=== PATIENT | female | born 1940 | race Caucasian/White ===

== ENCOUNTER 2016-10-25 18:34 | Emergency (ER) | payer MEDICARE, OTHER ==
[~2016-10-25] VITALS: Ht 172.7 cm; Wt 86.4 kg
[~2016-10-25 18:34] MED LIST: AMIO200T PO; AMT50T PO; ASPI-973 PO; CARV25TA2 PO; CHOL40003 PO; GEMF600T3 PO; HYDR-3740 PO; ISOS30TA4 PO; KRIL1CAP19 PO; LIP40 PO; LISI-567 PO; LORA0.5T PO; LOV100 SUBQ; MULT-1018 PO; NITR0.4T SL; OMEP20TA86 PO; POLY17PO6 PO; RNT300T PO; SERT100T9 PO; TRIA1CAP5 PO; WARF3TAB7 PO; [UNRECOGNIZED DRUG - CODE] PO
[2016-10-25 18:44] VITALS: BP 113/65; PULSE 71; RESP 16; O2SAT 95
== END 2016-10-25 20:49 | disposition left against medical advice (07) ==
LOC: SED 18:34
DX: Z53.21 Procedure and treatment not carried out due to patient leaving prior to being seen by health care provider (principal)

== ENCOUNTER 2017-02-07 20:53 | Inpatient (IN) | payer MEDICARE, OTHER ==
[~2017-02-07] VITALS: Ht 172.7 cm; Wt 100.3 kg
[2017-02-07 21:00] VITALS: BP 142/108; PULSE 129; RESP 24; O2SAT 86
--- NOTE | 2017-02-07 21:10 | ED.REPORT ---
HPI-Dyspnea / Wheezing Date of Service Feb 07, 2017 ED Provider: Juan Manuel Rose MD 76 y/o female on Warfarin with a hx of CHF, CAD (s/p stent placement), hypertension, COPD and atrial fibrillation with RVR presents to the ED via EMS complaining of dyspnea for the past 2 weeks. As per the EMS, the pt had shallow respirations and wheezing. She was given Albuterol and 20mg Cardizem, which seemed to improve her sx and brought her HR down from 180 to 110. The pt states her sx got significantly worse 5 days ago when she experienced a severe and sudden attack of shortness of breath. The last two nights were especially unbearable. She used her Nebulizer but it did not improved her condition at all. She also reports mild nausea and chest pain. She states "it feels like a lump in my chest". The pt denies fever and cough. She has not taken any of her medications today, including Carvedilol. Code status: DNR with short term ventilatory support. PCP: Dr. Yoon Meat Boner And Slicer: Dr. Yao Nursing Notes Stated Complaint: SHORTNESS OF BREATH Chief Complaint: Respiratory Complaints Nursing Notes Reviewed: Yes Allergies: Uncoded Allergies: weed/grasses (Allergy, Severe, sneezing, nasal drainage, coughing, 02/04/11) Scheduled Amitriptyline (Amitriptyline) 50 Mg Tab 50 MG PO HS Aspirin (Aspirin) 81 Mg Tablet 81 MG PO HS Atorvastatin (Lipitor) 40 Mg Tablet 40 MG PO HS Carvedilol (Carvedilol) 25 Mg Tablet 25 MG PO BID Cholecalciferol (Vitamin D3) (Vitamin D3) 2,000 Unit Capsule 2,000 UNIT PO DAILY Flecainide Acetate (Flecainide Acetate) 50 Mg Tablet 50 MG PO BID Gemfibrozil (Gemfibrozil) 600 Mg Tablet 600 MG PO BID Isosorbide MN ER (Isosorbide MN ER) 30 Mg Tab.er.24h 30 MG PO DAILY Lisinopril (Lisinopril) 20 Mg Tablet 20 MG PO BID Lorazepam (Lorazepam) 0.5 Mg Tablet 0.5 MG PO DAILY Montelukast (Montelukast) 10 Mg Tablet 10 MG PO HS Multivitamin (Multi Vitamin Daily) 1 Each Tablet 1 TAB PO DAILY Omeprazole (Omeprazole) 20 Mg Tablet.dr Cooper MG PO BID Polyethylene Glycol 3350 (Miralax) 17 Gm Powd.pack 17 GM PO DAILY Sertraline HCl (Sertraline) 100 Mg Tablet 100 MG PO QAM Ubidecarenone (Coenzyme Q10) 30 Mg/5 Ml Liquid 60 MG PO DAILY Warfarin Sodium (Warfarin Sodium) 3 Mg Tablet 3 MG PO MONDAYS Warfarin Sodium (Warfarin Sodium) 3 Mg Tablet 4.5 MG PO ALL OTHER DAYS Scheduled PRN Hydrocodone-Acetaminophen 10-325 mg (Hydrocodone-Acetaminophen 10-325 mg) 1 Each Tablet 1-2 TABLET PO Q4H PRN PRN For Pain Nitroglycerin SL (Nitrostat) 0.4 Mg Tab.subl 0.4 MG SL Q5MIN PRN PRN For Chest Pain Ranitidine (Zantac) 300 Mg Tablet 300 MG PO BID PRN PRN For Dyspepsia or Heartburn Triamcinolone Acetonide (Nasacort) 10.8 Ml [place] 1-2 SPRAY NOSTRIL BID PRN PRN PRN CONGESTION Triamterene/HCTZ 37.5-25 mg (Triamterene/HCTZ 37.5-25 mg) 1 Each Capsule 1 CAPSULE PO DAILY PRN PRN oliguria General Time Seen by MD: 21:06 Chief Complaint Shortness of breath Hx Obtained From: Patient, EMS Arrived By: Ambulance Sudden in Onset?: No Onset Occurred: More than a week ago... (2 weeks) Symptom Duration: Since onset Severity: Current: No pain currently Severity: Maximum: No pain Recent Healthcare: No recent doctor visit Similar Sx Previous: Yes Past Medical History Past Medical History Notes: Code status: DNR with short term ventilatory support Past Medical History Coronary artery disease. a. Non ST-segment elevation myocardial infarction in February 2011. Cardiac catheterization on February 05, 2011: Calcified coronararteries. Tight proximal LAD stenosis that was successfully treated with one bare metal stent. Diffuse moderate disease of the right coronary artery. LVEF 69%. Left ventricular end-diastolic pressure 15 mmHg. Behcet's disease since 2003. Followed by Dr Pablo but patient has not seen him for a while a. She has history of painful oral ulcers. History of gastrointestinal bleeding in 1988. Reports: GERD, Hyperlipidemia, Hypertension Reports: Atrial fibrillation, Depression Past Surgical History Total abdominal hysterectomy and bilateral salpingo-oophorectomy. Smoking History Former Smoker Social History Other Social History: Local resident Ambulatory Status Independent Review of Systems Constitutional: Denies: Fever Respiratory: Reports: Shortness of breath, Denies: Non-productive cough Cardiovascular: Reports: Chest pain (mild) Complete sys rev & neg: except as marked. Physical Exam Initial Vital Signs Vital Signs (First) Date Time Temp Pulse Resp B/P Pulse Ox O2 Delivery O2 Flow Rate FiO2 02/07/17 21:00 36.8 129 24 142/108 86 Room Air 02/07/17 21:11 4 Initial VS: Reviewed Head / Eyes: Atraumatic, Normocephalic Abdomen / GI: Soft, Non-tender Extremities: Vascular intact, Neuro intact, No swelling, No tenderness Skin: Warm, Dry, No cyanosis Neurologic: Alert, Oriented, Nonfocal General/Constitutional: Awake, Alert, Cooperative Neck: Atraumatic, Supple, Full range of motion Neck Vascular: Positive: JVD mild Respiratory / Chest: Atraumatic, Breath sounds NL, Breath sounds = bilat, No respiratory distress, No rales, No rhonchi, No wheezing Cardiovascular: Heart sounds NL, No gallop, No murmurs, No rubs Heart Rate / Rhythm: Positive: Irreg irregular rhythm Interpretation & Diagnostics Lab Results Interpretation Result Diagram: 02/07/17 21002/07/17 210 Test 02/07/17 21:07 02/08/17 00:01 White Blood Count 11.3th/mm3 (3.8-10.1) Red Blood Count 4.57mil/mm3 (3.90-5.20) Hemoglobin 12.9g/dL (12.0-15.6) Hematocrit 41.3% (35.0-46.0) Mean Corpuscular Volume 90.4fL (81-100) Mean Corpuscular Hemoglobin 28.2pg (27.0-35.0) Mean Corpuscular Hemoglobin Concent 31.2% (32.0-37.0) Red Cell Distribution Width 13.9% (12.3-15.4) Platelet Count 443bil/L (150-400) Neutrophils (%) (Auto) 68.9% (40-74) Lymphocytes (%) (Auto) 19.3% (14-46) Monocytes (%) (Auto) 8.7% (4-12) Eosinophils (%) (Auto) 2.2% (0-5) Basophils (%) (Auto) 0.4% (0-3) Prothrombin Time 18.5sec (8.1-12.5) Prothromb Time International Ratio 1.71ratio Sodium Level 141mEq/L (134-144) Potassium Level 3.8mEq/L (3.5-5.2) Chloride Level 104mEq/L (97-108) Carbon Dioxide Level 21mmol/L (18-29) Blood Urea Nitrogen 19mg/dL (8-27) Creatinine 0.85mg/dL (0.57-1.00) Estimat Glomerular Filtration Rate 93mL/min (>59) Glucose Level 168mg/dL (60-99) Calcium Level 9.6mg/dL (8.5-10.1) Total Bilirubin 0.3mg/dL (0.0-1.2) Aspartate Amino Transf (AST/SGOT) 16U/L (0-50) Alanine Aminotransferase (ALT/SGPT) 13U/L (0-32) Alkaline Phosphatase 92U/L (25-165) Troponin T 0.010ug/L (0.0-0.011) Pro-B-Type Natriuretic Peptide 1921pg/mL (0-738) Total Protein 7.7g/dL (6.4-8.4) Albumin 4.2g/dL (3.4-5.0) Hold Urine Received (Received) ECG Interpretation ECG Interpretation: A-fib. Rate 113 No acute changes Time: 21:12 Interpreted by: ED physician X-Ray Chest Interpretation Chest Xray Interpretation: Result: Cardiomegaly and congestive heart failure View: Portable, 1 view Interpretation / Wet Read by: Wet read ED physician Re-Eval/Medical Decision Re-Evaluation/Progress : Time of Eval: 22:29 Patient Status: Condition improved Re-Evaluation/Progress Note: Recheked pt. She reports feeling better. Discussed lab results, imaging results, diagnosis and plan to admit. Pt understands and agrees with the plan. All questions addressed. Consultation : Referral / Consult Name: Tino Ledesma MD Consulted With: Hospitalist Call Returned at: 00:22 Application Specialist: Will see patient, Agrees with eval, Agrees with plan, Accepts admit Counseled Regarding: Diagnosis, Lab results, Need for admission Discharge & Departure Impression: Primary Impression: Atrial fibrillation with rapid ventricular response Additional Impression: Acute exacerbation of congestive heart failure Congestive heart failure type: unspecified congestive heart failure type Qualified Code: I50.9 - Heart failure, unspecified Disposition: ADMITTED TO HOSPITAL Discharge Condition All VS Reviewed: Yes Referrals: Antonio Yoon MD (PCP) Scribe Attestation Portions of this note were transcribed by Gavin Smith. I, , personally performed the history, physical exam and medical decision- making;I reviewed and confirmed the accuracy of the information in the transcribed note. Signed by Jaclyn Mares. 02/07/17 23:05 copies to: Antonio Yoon MD, Donald L MD Feb 07, 2017 21:10 Gavin Smith Feb 07, 2017 21:21 copies to: Antonio Yoon MD, Donald L MD Feb 07, 2017 21:10 Gavin Smith Feb 07, 2017 21:21
[2017-02-07 21:11] VITALS: PULSE 115; RESP 26; O2SAT 93
[2017-02-07 21:20] LABS: BASOPHILS % (AUTO) 0.4 % (0-3); EOSINOPHILS % (AUTO) 2.2 % (0-5); MONOCYTES % (AUTO) 8.7 % (4-12); Mean Corpuscular Hemoglobin 28.2 pg (27.0-35.0); Mean Corpuscular Volume 90.4 fL (81-100); NEUTROPHILS % (AUTO) 68.9 % (40-74); Platelet Count 443 bil/L (150-400)
[2017-02-07] MEDS ORDERED: Levalbuterol 1.25 mg/0.5mL Inhalation Solution NEB ONE (21:25)
[2017-02-07 21:37] LABS: INR 1.71 ratio
[2017-02-07 21:38] VITALS: PULSE 128; RESP 18; O2SAT 92
[2017-02-07 21:39] LABS: TROPONIN T 0.01 ug/L (0.0-0.011)
[2017-02-07 22:03] VITALS: BP 120/81; PULSE 128; RESP 20; O2SAT 94
[2017-02-07] MEDS ORDERED: FLC50T PO (22:25)
[2017-02-07] MEDS ORDERED: WARF3TAB7 PO ×2 (22:25)
[2017-02-07] MEDS ORDERED: CHOL200047 PO (22:25)
[2017-02-07] MEDS ORDERED: TRIA10.8 NOSTRIL (22:25)
[2017-02-07] MEDS ORDERED: MONT10TA23 PO (22:25)
[2017-02-07] MEDS ORDERED: Furosemide 10 mg/mL 2 mL Inj IVPUSH ONE (22:35)
[2017-02-07] MEDS: MeTOProlol 1 mg/mL 5 mL Inj IVPUSH SCH ×3 (22:53→23:59)
[2017-02-07 23:14] VITALS: BP 134/95; PULSE 133; RESP 20; O2SAT 97
[2017-02-08] VITALS (15 sets, daily range): BP systolic 89–159; BP diastolic 64–120; PULSE 118–136; RESP 18–32; O2SAT 91–97
--- NOTE | 2017-02-08 00:39 | PCM.HPMED ---
Subjective Date of Service Feb 08, 2017 Primary Provider: Admitting Physician: Primary Care Physician: Antonio Yoon MD Attending Physician: Admit Status: From the Emergency Department Chief Complaint: Shortness of breath, respiratory distress History of Present Illness: Is a pleasant 76 y/o female with history of A. fib with RVR and chronically anticoagulated on Warfarin, hx of CHF, CAD (s/p stent placement), hypertension, and COPD , that presented to the ED complaining of 4-5 weeks of mild shortness of breath and dyspnea. She states however over the past week her symptoms significantly worsened to the point where she "could not breathe", and her shortness of breath has continued to worsen since 1 week ago. She sees symptoms include sweats. Per EMS the patient was experiencing shallow respirations and wheezing when they arrived. She was given Albuterol and 20mg Cardizem, which improve her symptoms, as well as reduced her heart rate from 180 to 110. Of note patient sleeps in a chair at night propped up for many years. She attributes this to her history of autoimmune disease "Behcet's". Agent complains of a history of chronic nausea, She states that her symptoms were especially unbearable over the last two nights, and did not improve with her home nebulizer. The pt denies fever, chest pain, chills, vomiting, abdominal pain, cough. Of note patient had an SC in February 2011 and did not experience chest pain at that time either. She has not taken any of her medications today, including the Carvedilol. Of note patient seen by certified prosthetist/orthotist in December of this year and had PFTs done that showed PFTs that significantly improved with bronchodilator. 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 She attributes some of her lung dysfunction now to her premature status as . Patient had complete echo in 2014 that showed LVEF of 60-65% with normal left friend to call size thickness and function. In the ED: Patient was given IV Lasix 20 mg 1 EKG was A. fib with rate of 113 She was given metoprolol tartrate 5 mg IV push once without effect in lowering patient's heart rate. Patient was treated with Xopenex 1.25 mg nebulized once, her respiratory status. Vital signs showed: Temperature 36.8, pulse 180-->133, respiratory rate 20, blood pressure 134/95 with a map of 108, 97% oxygen on 3 L NC Hemogram showed: WBC 11.3, PMNs 68.9%, lymphs 19.3%, H/H20.9/41.3, platelets 443. Chemistry panel showed: Normal with the exception of glucose 168, proBNP 1921 PT/INR 18.5/1.71 UA is pending CXR showed diffuse interstitial markings, consistent with CHF. Patient was admitted to the hospital for shortness of breath, COPD exacerbation , versus CHF exacerbation, and A. fib with RVR. Patient was placed on and he noticed cardiac monitoring and received diltiazem drip and her antiarrhythmic medications are restarted. Review of Systems: A comprehensive review of systems was conducted and was negative except as mentioned in history of present illness. Allergies Coded Allergies: Grass (Unverified Allergy, Severe, sneezing, nasal drainage, coughing, 02/08) weed pollen (Unverified Allergy, Severe, sneezing, nasal drainage, coughing, 02/08/17) Uncoded Allergies: weed/grasses (Allergy, Severe, sneezing, nasal drainage, coughing, 02/04/11) Home Medications Amitriptyline (Amitriptyline) 50 Mg Tab 50 MG PO HS Aspirin (Aspirin) 81 Mg Tablet 81 MG PO HS Atorvastatin (Lipitor) 40 Mg Tablet 40 MG PO HS Carvedilol (Carvedilol) 25 Mg Tablet 25 MG PO BID Cholecalciferol (Vitamin D3) (Vitamin D3) 2,000 Unit Capsule 2,000 UNIT PO DAILY Flecainide Acetate (Flecainide Acetate) 50 Mg Tablet 50 MG PO BID Gemfibrozil (Gemfibrozil) 600 Mg Tablet 600 MG PO BID Isosorbide MN ER (Isosorbide MN ER) 30 Mg Tab.er.24h 30 MG PO DAILY Lisinopril (Lisinopril) 20 Mg Tablet 20 MG PO BID Lorazepam (Lorazepam) 0.5 Mg Tablet 0.5 MG PO DAILY Montelukast (Montelukast) 10 Mg Tablet 10 MG PO HS Multivitamin (Multi Vitamin Daily) 1 Each Tablet 1 TAB PO DAILY Omeprazole (Omeprazole) 20 Mg Tablet.dr 20 MG PO BID Polyethylene Glycol 3350 (Miralax) 17 Gm Powd.pack 17 GM PO DAILY Sertraline HCl (Sertraline) 100 Mg Tablet 100 MG PO QAM Ubidecarenone (Coenzyme Q10) 30 Mg/5 Ml Liquid 60 MG PO DAILY Warfarin Sodium (Warfarin Sodium) 3 Mg Tablet 3 MG PO MONDAYS Warfarin Sodium (Warfarin Sodium) 3 Mg Tablet 4.5 MG PO ALL OTHER DAYS PRN Hydrocodone-Acetaminophen 10-325 mg (Hydrocodone-Acetaminophen 10-325 mg) 1 Each Tablet 1-2 TABLET PO Q4H PRN PRN For Pain Nitroglycerin SL (Nitrostat) 0.4 Mg Tab.subl 0.4 MG SL Q5MIN PRN PRN For Chest Pain Ranitidine (Zantac) 300 Mg Tablet 300 MG PO BID PRN PRN For Dyspepsia or Heartburn Triamcinolone Acetonide (Nasacort) 10.8 Ml [place] 1-2 SPRAY NOSTRIL BID PRN PRN PRN CONGESTION Triamterene/HCTZ 37.5-25 mg (Triamterene/HCTZ 37.5-25 mg) 1 Each Capsule 1 CAPSULE PO DAILY PRN PRN oliguria PMH Coronary artery disease. a. Non ST-segment elevation myocardial infarction in February 2011. Cardiac catheterization on February 05, 2011: Calcified coronary arteries. Tight proximal LAD stenosis that was successfully treated with one bare metal stent. Diffuse moderate disease of the right coronary artery. LVEF 69%. Left ventricular end-diastolic pressure 15 mmHg. Behcet's disease since 2003. Followed by Dr Pablo but patient has not seen him for a while a. She has history of painful oral ulcers. History of gastrointestinal bleeding in 1988. Reports: GERD, Hyperlipidemia, Hypertension Reports: Atrial fibrillation, Depression A. fib with RVR chronically anticoagulated on warfarin, Surgical History Total abdominal hysterectomy and bilateral salpingo-oophorectomy. Family History 77-year-old brother with history of blood vessel disease in the brain. Patients mother of breast cancer. Sister of pancreatic cancer Father had congenital kidney problems Social History Hx Alcohol Use: No Hx Substance Use: No Hx Tobacco Use: No Smoking Status: Former Smoker (patient quit tobacco 25 years ago after smoking for 30 years, 1 pack per day) Exam Vital Signs Vital Sign - Last Date Time Temp Pulse Resp B/P Pulse Ox O2 Delivery O2 Flow Rate FiO2 02/07/17 23:14 133 20 134/95 97 Nasal Cannula 3 02/07/17 21:00 36.8 Exam General: HEENT: NC/AT, eyes, PERRLA, EOMI, neck, soft supple, no adenopathy, no JVD, no masses, no thyromegaly, throat mucous membranes pink and moist/Dry, no erythema , no exudates, no tonsillar swelling, no uvular deviation. Lungs: CTAB all lopez, no wheezes, no rhonchi, no crackles, no adventitious lung sounds, no use of accessory muscles of respiration, good air movement, good respiratory effort. Heart: Regular rate and rhythm, no murmur, S1-S2 present, no rub, no click, no distant heart sounds, Abdomen: Soft, nontender, nondistended, bowel sounds active, no rebound, no guarding, Genitourinary: No CVA tenderness, no suprapubic tenderness, no Holguin catheter, Extremities: Muscle strength, 5 out of 5 upper/lower extremity and symmetric laterally, reflexes 2 out of 4 upper/lower extremity and symmetric bilaterally, pulses equal and symmetric upper/lower extremity including radial and dorsalis pedis, no edema Neurologic: See neurologically intact, PT in full sentences, no focal neurological signs, [id number], [id number], no pronator drift, no hemineglect. Skin: Psychiatric: Mood is cheerful and mood and affect are congruent and appropriate. Lab and Diagnostics Result Diagram: 02/07/17210602/07/172106 Assessment & Plan Patient is a pleasant 76-year-old female with history of A. fib with RVR chronically anticoagulated on warfarin, COPD, and CHF. She has been been experiencing worsening shortness of breath and respiratory distress over the past week. Patient was admitted to the hospital for shortness of breath, COPD exacerbation, versus CHF exacerbation, and A. fib with RVR. Patient was placed on and he noticed cardiac monitoring and received diltiazem drip and her antiarrhythmic medications are restarted. # Acute COPD exacerbation, present on admission. - Patient not on home oxygen. -Vital signs showed: Temperature 36.8, pulse 133, respiratory rate 20, blood pressure 134/95 with a map of 108, 97% oxygen on 3 L NC -Patient had pulmonary function test done on 12/04/2016 secondary to dyspnea which showed: Patient showed a significant improvement in her PFTs with bronchodilator of 14%. Impression was No airflow obstruction, significant response to inhaled bronchodilator seen, lung volumes are normal, diffuse capacity to his mildly reduced. -Continue supplemental oxygen as needed and slowly titrate off. Goal SpO2 88% - 92%. -Start 40 mg prednisone daily x 5 days. -Continue Xopenex every 2 hours as needed for shortness of breath. # Acute leukocytosis, present on admission, active -Procalcitonin ordered and pending -WBC 11.3, PMNs 68.9%, lymphs 19.3%, -Continue to monitor with CBC -CXR showed diffuse interstitial markings consistent with CHF. -UA is pending # A. fib with RVR, present remission, active - Patient denies Chest Pain - Troponin Negative X 2 - Patient missed her morning dose of Cardizem, but was given Cardizem 10 mg in route by EMS - She was given metoprolol tartrate 5 mg IV push once without help in decreasing heart rate. - Chronically anticoagulated on warfarin, - PT/INR 18.5/1.71 - EKG showed A. fib with rate of 113 - We will restart home medication Cardizem - Continuous cardiac monitoring with remote telemetry - We will continue home medication flecainide - We will start diltiazem drip. - TSH ordered and pending # CHF, present on admission, active - Patient was shortness of breath on presentation to the ED, symptoms improved with nebulizer treatment Xopenex - Patient had SHAR done secondary to A. fib on 06/21/2015 that showed: No thrombus. - Patient had complete echo done on 09/15/2013 which showed: Normal left ventricular size, wall thickness, and wall motion. Left ventricular LVEF was 60 -65%, moderate mitral regurg. - She was treated with 20 mg IV Lasix once - Pro BNP 1921 - Chest x-ray showed diffuse interstitial markings consistent with CHF. - We will order complete echo. # Hyperglycemia present on admission, active - Glucose 168 - We will get hemoglobin A1c Chronic problems #Coronary artery disease, status post stenting 2010 - Followed by material chaser Dr. Gaines #Behcet's syndrome #Hypertension #COPD Disposition: Admitted to in patient service with expected length of stay greater than 2 days, secondary to severity of presenting symptoms, treatment plan, complexity of clinical work up, and risk of adverse events. CODE STATUS: Code status: DNR with short term ventilatory support. PCP: Antonio Landis Cardiology: Dr. Gaines DVT PE prophylaxis: SCD's/Enoxiparin/SubQ heparin Q8H Contact: Resuscitation Status: Limited Interventions (patient is DO NOT RESUSCITATE with short-term intubation and ventilator support) Jose Alejandro Newby DO Feb 08, 2017 00:39
[2017-02-08] MEDS ORDERED: Alum-Mag Hydrox-Simeth 30 mL Suspension PO PRN (00:55)
[2017-02-08] MEDS ORDERED: Ondansetron 2 mg/mL 2 mL Inj IVPUSH PRN (00:55)
[2017-02-08] MEDS ORDERED: Polyethylene Glycol (PEG) 17 Gm Powder PO PRN (00:55)
[2017-02-08] MEDS ORDERED: Levalbuterol 1.25 mg/0.5mL Inhalation Solution NEB PRN (01:45)
[2017-02-08 02:23] LABS: Magnesium 1.9 mg/dL (1.6-2.6)
[2017-02-08 02:29] LABS: APPEARANCE,URINE HAZY (CLEAR,HAZY); COLOR,URINE STRAW (YELLOW); OCCULT BLOOD,URINE NEGATIVE (NEGATIVE); PH,URINE 5.5 (5.0-8.0); UROBILINOGEN,URINE NORMAL (NORMAL)
[2017-02-08] MEDS: predniSONE 20 mg Tablet PO SCH ×2 (02:34→09:29)
[2017-02-08] MEDS ORDERED: Diltiazem 5 mg/mL 5 mL Inj IVPUSH ONE (02:50)
[2017-02-08 02:52] LABS: Mean Corpuscular Hemoglobin 28.2 pg (27.0-35.0); Mean Corpuscular Volume 89.6 fL (81-100)
[2017-02-08] MEDS: HYDROcodone-APAP 10-325 mg PO PRN ×2 (03:06→18:11)
[2017-02-08 03:20] LABS: INR 1.67 ratio
[2017-02-08] MEDS: Diltiazem Inj 125 MG in 0.9% Sodium Chloride 100 ML, Pharmacy To Mix 1 EA IV SCH ×3 (03:24→21:24)
--- NOTE | 2017-02-08 05:11 | NUR ---
0511 Sustained HR 120-130's, pt reports SOB, desat to 88% on 3L, dilt drip increased to 10 ml/hr. Addendum: 02/08/17 at 0547 by SARATH FORD RN 0545 Sustained 130-140's. Dilt drip increased to 15ml/hr. Pt reports increasing anxiety, O2 needs increased. 10L on oxymask. Order rec'd for IV ativan x1. Addendum: 02/08/17 at 0610 by SARATH FORD RN [id number] IVP ativan 0.5 mg given with effective results per pt. HR sutained 120's.
[2017-02-08] MEDS ORDERED: Furosemide 10 mg/mL 4 mL Inj ONE (07:19)
[2017-02-08] MEDS ORDERED: Nitroglycerin 2% 1 Gm Ointment TOPICAL ONE ×2 (07:19→07:30)
[2017-02-08] MEDS ORDERED: Furosemide 10 mg/mL 4 mL Inj IVPUSH ONE (07:30)
--- NOTE | 2017-02-08 08:45 | DRSVH ---
PROCEDURE: X-RAY CHEST ONE VIEW, PORTABLE ([id number]) INDICATIONS: SHORTNESS OF BREATH TECHNIQUE: One view of the chest was acquired. COMPARISON: [facility], CR, XR CHEST 2VW, 06/24/2015, 8:26. [facility], CR, XR CHEST 1VW (PORTABLE), 06/22/2015, 1:23. FINDINGS: Surgical changes and devices: None. Lungs and pleura: There is increased mild pulmonary edema. There is a small left and probable small right pleural effusion. A few linear opacities in the lung bases likely represent atelectasis. Mediastinum: Mediastinal contours appear unchanged. Heart size is borderline enlarged. Bones and chest wall: No suspicious bony lesions. Overlying soft tissues appear unremarkable. IMPRESSION: 1. Cardiomegaly with mild pulmonary edema and small pleural effusions compatible with congestive hear t failure. Dictated by: Pedro Storey M.D. on 02/08/2017 at 8:42 Approved by: Pedro Storey M.D. on 02/08/2017 at 8:43
[2017-02-08] MEDS: Sodium Chloride LOK Flush 10 mL Syringe IVFLUSH SCH ×2 (09:28→17:48)
[2017-02-08] MEDS: Heparin 5,000 Unit/mL Inj SUBQ SCH ×2 (09:30→20:39)
[2017-02-08] MEDS: LORazepam 0.5 mg Tablet PO SCH (09:30)
[2017-02-08] MEDS: Isosorbide Mononitrate 30 mg ER24 Tablet PO SCH (09:30)
--- NOTE | 2017-02-08 12:09 | PCM.PHAPRO ---
Progress Date of Service: Feb 08, 2017 Warfarin dosing Date -Feb 08-Feb INR 1.71 1.67 INR change -0.04 Warf Dose 4.5 4.5MG Arminda Thorne PharmD Feb 08, 2017 12:09
--- NOTE | 2017-02-08 13:15 | PCM.PNMED ---
Subjective Date of Service Feb 08, 2017 Subjective This morning she is dyspneic and somewhat confused. She is having a difficult time breathing. She is also tachycardic but denies any chest pain or palpitations. She is somewhat nauseated but denies any abdominal pain. She has had atrial fibrillation with rapid response since arriving to floor. She is also having hypoxia and oxygen mask. The patient reaffirms her previous statement of DO NOT RESUSCITATE as well as that she would accept intubation and mechanical ventilation for deterioration of her breathing. Exam Vital Signs Vital Sign - Last Date Time Temp Pulse Resp B/P Pulse Ox O2 Delivery O2 Flow Rate FiO2 02/08/17 12:21 36.3 122 19 145/111 96 OxyMask 6.00 02/08/17 07:15 40 Intake and Output 02/07/17 02/07/17 02/08/17 Cumulative From/Thru 15:00 23:00 07:00 02/07/17 21:00 - 02/08/17 06:05 Intake Total 430 ml 430 ml Output Total 350 ml 350 ml Balance 80 ml 80 ml Intake Oral 400 ml 400 ml IV Total 30 ml 30 ml Output Urine Total 350 ml 350 ml Exam Alert in moderate respiratory distress. She is somewhat lethargic but not confused. Anicteric sclera. Lungs are clear with increased work of breathing and tachypnea. Heart is irregular without murmur gallop or rub, tachycardic. Abdomen soft nontender, flat Extremities are free of edema. Skin is free of rash or lesions. IVs and Medications Medications Reviewed: Medications were reviewed in detail Lab and Diagnostics Result Diagram: 02/08/17 0120 02/07/17 9748 Assessment & Plan Patient is a pleasant 76-year-old female with history of A. fib with RVR chronically anticoagulated on warfarin, COPD, and CHF. She has been been experiencing worsening shortness of breath and respiratory distress over the past week. Patient was admitted to the hospital for shortness of breath, COPD exacerbation, versus CHF exacerbation, and A. fib with RVR. Patient was placed on and he noticed cardiac monitoring and received diltiazem drip and her antiarrhythmic medications are restarted. #. Acute respiratory failure with hypoxia, new. The patient is suffering from acute on chronic test WILL BE DIURESED WITH LASIX 40 IV, TREATED WITH NITROL PASTE 1 INCH TOPICALLY AND STARTED ON BIPAP. #. Acute on chronic diastolic heart failure, new. The plan is exactly as above. # Acute COPD exacerbation, present on admission. - Patient not on home oxygen. -Vital signs showed: Temperature 36.8, pulse 133, respiratory rate 20, blood pressure 134/95 with a map of 108, 97% oxygen on 3 L NC -Patient had pulmonary function test done on 12/04/2016 secondary to dyspnea which showed: Patient showed a significant improvement in her PFTs with bronchodilator of 14%. Impression was No airflow obstruction, significant response to inhaled bronchodilator seen, lung volumes are normal, diffuse capacity to his mildly reduced. -Continue supplemental oxygen as needed and slowly titrate off. Goal SpO2 88% - 92%. -Start 40 mg prednisone daily x 5 days. -Continue Xopenex every 2 hours as needed for shortness of breath. # Acute leukocytosis, present on admission, active and stable -Procalcitonin ordered and pending -WBC 11.3, PMNs 68.9%, lymphs 19.3%, -Continue to monitor with CBC -CXR showed diffuse interstitial markings consistent with CHF. -UA is pending # A. fib with RVR, present remission, active - Patient denies Chest Pain - Troponin Negative X 2 - Patient missed her morning dose of Cardizem, but was given Cardizem 10 mg in route by EMS - She was given metoprolol tartrate 5 mg IV push once without help in decreasing heart rate. - Chronically anticoagulated on warfarin, - PT/INR 18.5/1.71 - EKG showed A. fib with rate of 113 - We will restart home medication Cardizem - Continuous cardiac monitoring with remote telemetry - We will continue home medication flecainide - We will start diltiazem drip. - TSH ordered and pending Diltiazem drip is maxed at 15 mg per hour with moderate rate control with heart rate in the 130s. When able to take by mouth we will add oral diltiazem at 30 mg by mouth every 6 hours. # Hyperglycemia present on admission, active - Glucose 168 - We will get hemoglobin A1c Chronic problems #Coronary artery disease, status post stenting 2010 - Followed by studio musician Dr. Gaines #Behcet's syndrome #Hypertension #COPD Disposition: Admitted to in patient service with expected length of stay greater than 2 days, secondary to severity of presenting symptoms, treatment plan, complexity of clinical work up, and risk of adverse events. CODE STATUS: Code status: DNR with short term ventilatory support. PCP: Antonio Landis Cardiology: Dr. Gaines DVT PE prophylaxis: SCD's/Enoxiparin/SubQ heparin Q8H Contact: Resuscitation Status: Limited Interventions (patient is DO NOT RESUSCITATE with short-term intubation and ventilator support) Chance Torre MD Feb 08, 2017 13:15
--- NOTE | 2017-02-08 13:51 | NUR ---
Social Work: Initial Assessment D: Per EMR review, pt is a 76 year old female admitted for Afib with RVR, CHF. Pt is Medicare with [employer] Med Plan Supplement; pt has no LTC insurance or VA benefits. PCP is Antonio Yoon MD. NOK is Delmer Johns, spouse, . Advanced directives completed and on chart. No RA score entered at this time. SIZE CHANGER met with pt at bedside. Sw role explained and contact info provided. Pt lives in [place] with her spouse. Pt is I with ADLs, and uses no DME at baseline. Pt lives in a single story home with 4 steps to enter. Pt states she continues to drive, has never had HH or skilled rehab. Pt express no concerns about discharge home when medically stable. Pt states that she has accepted that she might need home 02 at discharge. A: Pt who is I at baseline. P: Anticipate pt to discharge home via POV; SIZE CHANGER to continue to follow to assess for discharge needs. YUNIEL Villegas Addendum: 02/08/17 at 1359 by RIYA PLATT Amended: Links added.
--- NOTE | 2017-02-08 13:53 | NUR ---
spiritual care: pt request conversational visit and prayer/blessing. pt reflected on her current fear/anxiety relating to shortness of breath, thoughts of dying and surprise at news of heart condition. She explained that she had believed the past year or so was pulmonary-related issues and expressed anxiety at uncontrollable heart rate. Pt reflected on personal history that may pertain to current condition as well as losses of close family members. Pt christian and appreciative of eucharistic visitor and follow up spiritual care.
[2017-02-08] MEDS ORDERED: Warfarin 2.5 MG, Warfarin 2 MG PO ONE ×2 (17:00)
[2017-02-08] MEDS: Senna-Docusate 8.6-50 mg Tablet PO PRN (18:06)
--- NOTE | 2017-02-08 18:28 | NUR ---
Tele/Oxygen/Pain/Urine output. Tele: Afib/flutter 110-135. Cardizem gtt infusing at 15mg/hr. One dose of Cardizem 30mg PO given this afternoon. Patient denies CP, palpitations or SOB. SpO2: 92-98 on 6L oxymask. VSS at this time. Patient had 2L of urine output after a one time dose of Lasix 40mg IVP administered this morning.
[2017-02-09] VITALS (9 sets, daily range): BP systolic 81–131; BP diastolic 50–75; PULSE 97–121; RESP 15–24; O2SAT 92–97
[2017-02-09] MEDS: Sodium Chloride LOK Flush 10 mL Syringe IVFLUSH SCH ×4 (00:30→23:11)
[2017-02-09 03:01] LABS: INR 2.74 ratio
--- NOTE | 2017-02-09 06:12 | NUR ---
Cardiac/Respiratory A/o x3, cooperative with cared and verbalizes needs with minimal anxiety. Diltiazem gtt @ 15mL hr, followed by 2 doses PO Diltiazem. Tele: AFib 120-140 @ start of shift, now 100-120"s. On 6L o2 via oxymask, Spo2 94-97%. Resting with eyes closed in up right position. VSS.
[2017-02-09 08:12] LABS: Vitamin B12 853 pg/mL (211-946)
[2017-02-09] MEDS: Isosorbide Mononitrate 30 mg ER24 Tablet PO SCH (08:30)
[2017-02-09] MEDS: Heparin 5,000 Unit/mL Inj SUBQ SCH (09:30)
[2017-02-09] MEDS: predniSONE 20 mg Tablet PO SCH (09:33)
[2017-02-09] MEDS: LORazepam 0.5 mg Tablet PO SCH (09:34)
[2017-02-09] MEDS: cefTRIAXone Inj 1,000 MG in Dextrose 5% Minibag Plus 50 ML IV SCH (09:51)
--- NOTE | 2017-02-09 09:59 | PCM.PNMED ---
Subjective Date of Service Feb 09, 2017 Subjective Overnight, no acute event. Patient is still in Afib with HR ranges from 100s- 120s with Diltiazem gtt and PO. Saturating 94-97% on 6L Oxymask. This morning, patient states that she feels significantly better. She can breathe better with no significant SOB. She denies any cough, palpitations, CP, dizziness, headache, nausea, or vomiting. Exam Vital Signs Vital Sign - Last Date Time Temp Pulse Resp B/P Pulse Ox O2 Delivery O2 Flow Rate FiO2 02/09/17 07:39 97 OxyMask 6.00 02/09/17 05:12 102 02/09/17 04:25 36.6 15 94/65 02/08/17 10:00 40 Intake and Output 02/08/17 02/08/17 02/09/17 Cumulative From/Thru 15:00 23:00 07:00 02/07/17 21:00 - 02/09/17 06:45 Intake Total 180 ml 663 ml 1273 ml Output Total 2000 ml 350 ml 2700 ml Balance -1820 ml 313 ml -1427 ml Intake Oral 180 ml 300 ml 880 ml IV Total 363 ml 393 ml Output Urine Total 2000 ml 350 ml 2700 ml Exam General: Alert in no apparent distress. Appears comfortable on Oxygenmask at 4L. No conversation dyspnea. HEENT: NCAT, EOMI. Anicteric sclera. Mucosal membrane dry. Neck: supple, no JVD noted. Lungs: relatively clear with mild rales. No wheezes. No increased work of breathing. No accessory muscle use. Heart: irregular irregular without murmur gallop or rub, tachycardic. Abdomen: obese, soft, nondistended, nontender, active bowel sound. Extremities: trace edema in bilateral lower extremities. No clubbing or cyanosis. Skin: warm and dry. free of rash or lesions. Psych: appropriate mood and affect. IVs and Medications Medications Reviewed: Medications were reviewed in detail Lab and Diagnostics Result Diagram: 02/08/17 0120 02/09/17 0240 X-Rays, CTs and MRIs PROCEDURE: X-RAY CHEST ONE VIEW, PORTABLE 1. Cardiomegaly with mild pulmonary edema and small pleural effusions compatible with congestive heart failure. Dictated by: Pedro Storey M.D. on 02/08/2017 at 8:42 Assessment & Plan Patient is a pleasant 76-year-old female with history of A. fib with RVR chronically anticoagulated on warfarin, COPD, and CHF. She has been been experiencing worsening shortness of breath and respiratory distress over the past week. Patient was admitted to the hospital for shortness of breath, COPD exacerbation, versus CHF exacerbation, and A. fib with RVR. Patient was placed on and he noticed cardiac monitoring and received diltiazem drip and her antiarrhythmic medications are restarted. #. Acute respiratory failure with hypoxia, improving. - Likely secondary to CHF and COPD exacerbation. - She was diuresed with Lasix yesterday.Will give her one dose and Lasix 40mg IV and monitor her BP. - Continue O2 support. Patient is not on O2 at home at baseline. - Treatment as below. #. Acute on chronic diastolic heart failure, improving. - Patient presented with worsening SOB. No increase in edema per the patient. - Pro BNP 1921 - Chest x-ray showed diffuse interstitial markings consistent with CHF. - Patient has been receiving diuresis with IV Lasix. She takes Torsemide 20mg at home. Will hold home Torsemide given low BP. Follow clinically and add Lasix as needed. - Patient had complete echo done on 09/15/2013 which showed: Normal left ventricular size, wall thickness, and wall motion. Left ventricular LVEF was 60 -65%, moderate mitral regurg. - Repeat Echo report pending. # Acute COPD exacerbation, present on admission. - Patient not on home oxygen. - PFT on 12/04/2016 showed a significant improvement in her PFTs with bronchodilator of 14%. Impression was No airflow obstruction, significant response to inhaled bronchodilator seen, lung volumes are normal, diffuse capacity to his mildly reduced. - Continue supplemental oxygen as needed and slowly titrate off. Goal SpO2 88% - 92%. - Continue 40 mg prednisone daily - Continue Xopenex every 2 hours as needed for shortness of breath. # A. fib with RVR, present remission, active - Chronically anticoagulated on warfarin, INR is therapeutic now. - Diltiazem drip is maxed at 15 mg per hour with moderate rate control with heart rate in the 130s. Increase oral diltiazem to 60 mg by mouth every 6 hours and will slowly titrate the Diltiazem ggt. - Continue home Flecainide and Carvedilol 25mg BID. - Continuous cardiac monitoring with remote telemetry - We will continue home medication flecainide. Janine consultation with Dr. Easley, who suggested that the elevated HR is likely due to the respiratory failure. Once her symptoms improve further and her HR is still uncontrolled, we can formally consult card. - TSH ordered and pending. # Acute leukocytosis, present on admission, active and stable -Procalcitonin 0.17. -WBC 11.3, PMNs 68.9%, lymphs 19.3% on admission. Currently stable. -No other sign of infections. -Continue to monitor with CBC -CXR showed diffuse interstitial markings consistent with CHF. -Prelim urine culture grew gram negative shelbie. Will continue with Ceftriaxone until culture result comes back. Day #3. # Hyperglycemia present on admission, improved. - A1c 6.1 - Follow clinically Chronic problems #Coronary artery disease, status post stenting 2010 - Followed by crate repairer Dr. Gaines - Presume stable. Patient is asymptomatic. - Continue ASA and statin #Hypertension - Hold home Lisinopril, Imdur, and Torsemide in light of low BP. - Lasix IV as above. #Behcet's syndrome Disposition: Admitted to in patient service with expected length of stay greater than 2 days, secondary to severity of presenting symptoms, treatment plan, complexity of clinical work up, and risk of adverse events. CODE STATUS: Code status: DNR with short term ventilatory support. PCP: Antonio Landis Cardiology: Dr. Gaines DVT PE prophylaxis: SCD's/Enoxiparin/SubQ heparin Q8H Contact: Pain Evaluation: Adequate Pain Control GI Prophylaxis: Not indicated VTE Prophylaxis: Theraputic Anticoag with Warfarin Resuscitation Status: Limited Interventions (patient is DO NOT RESUSCITATE with short-term intubation and ventilator support) Attending Statement The patient was seen and examined with staff. Agree with all attached documentation. Breanna Burleson DO Feb 09, 2017 08:00 Chance Torre MD Feb 11, 2017 07:43
--- NOTE | 2017-02-09 10:34 | PCM.PHAPRO ---
Progress Date of Service: Feb 09, 2017 Warfarin dosing Date -Feb 08-Feb 09-Feb INR 1.71 1.67 2.74 INR change -0.04 1.07 Warf Dose 4.5 4.5MG Rudi Moralez Feb 09, 2017 10:34
--- NOTE | 2017-02-09 13:42 | NUR ---
spiritual care: follow up conversational visit. pt described feeling better, was eating lunch and verbalized her plan of care with continued areas of attention. Pt expressive of her sebastian and appreciative of eucharistic visitors. pt used humor, described her relief at better medical news and spoke with calmness and energy.
--- NOTE | 2017-02-09 15:30 | NUR ---
Social Work: Multidisciplinary Rounds Pt discussed in MD rounds. SW status and d/c needs continue to remain unknown. Anticipate discharge home but sw continuing to follow for needs. YUNIEL Villegas
[2017-02-09] MEDS: Diltiazem Inj 125 MG in 0.9% Sodium Chloride 100 ML, Pharmacy To Mix 1 EA IV SCH (15:47)
[2017-02-09] MEDS ORDERED: Furosemide 10 mg/mL 4 mL Inj IVPUSH ONE (17:50)
--- NOTE | 2017-02-09 19:31 | NUR ---
BP/HR Pt's BP 100/50 this am with multiple trixie medications due that would effect blood pressure, spoke with MD. MD ordered lisinopril, imdur, and torsemide withheld and medications D/C'd. Pt's subsequent BPs 81/54 and 99/65, Pt asymptomatic. Pt's HR remains a fib in the 100s-120s this shift, MD aware, additional one time dose of IV lasix ordered in addition to increasing Q6 PO dilt from 30mg to 60mg, oncoming NOC RN made aware of changes.
[2017-02-09] MEDS: HYDROcodone-APAP 10-325 mg PO PRN (22:17)
[2017-02-09] MEDS: Senna-Docusate 8.6-50 mg Tablet PO PRN (22:17)
[2017-02-10] VITALS (8 sets, daily range): BP systolic 110–127; BP diastolic 58–90; PULSE 107–137; RESP 16–22; O2SAT 93–96
[2017-02-10 02:59] LABS: BASOPHILS % (AUTO) 0.1 % (0-3); EOSINOPHILS % (AUTO) 0.2 % (0-5); MONOCYTES % (AUTO) 10.2 % (4-12); Mean Corpuscular Hemoglobin 28.2 pg (27.0-35.0); Mean Corpuscular Volume 89.6 fL (81-100); NEUTROPHILS % (AUTO) 77.7 % (40-74); Platelet Count 329 bil/L (150-400)
[2017-02-10 03:13] LABS: INR 2.76 ratio
--- NOTE | 2017-02-10 04:25 | NUR ---
Respiratory/Heart Rate A/O x3, increased activity this shift - tolerated well. Titrated Oxymask to 2L, no c/o SOB, SPO2 upper 90's. HR continues 100-120's, in AFib, increased dose of Diltiazem 60mg given. Addendum: 02/10/17 at 0441 by CHEYANNE IRVIN RN Indicated some anxiety r/t HR and impending d/c. Resting intermittently with eyes closed, safety checks in place, voiced no further needs at this time.
[2017-02-10] MEDS: cefTRIAXone Inj 1,000 MG in Dextrose 5% Minibag Plus 50 ML IV SCH (07:42)
[2017-02-10] MEDS: Sodium Chloride LOK Flush 10 mL Syringe IVFLUSH SCH ×2 (07:43→16:30)
[2017-02-10] MEDS: predniSONE 20 mg Tablet PO SCH ×2 (07:47→08:30)
[2017-02-10] MEDS: LORazepam 0.5 mg Tablet PO SCH (07:47)
[2017-02-10] MEDS ORDERED: Digoxin 0.25 mg/mL 2 mL Inj IV ONE (08:10)
[2017-02-10] MEDS ORDERED: Furosemide 10 mg/mL 4 mL Inj IVPUSH ONE (08:10)
--- NOTE | 2017-02-10 08:14 | PCM.PNMED ---
Subjective Date of Service Feb 10, 2017 Subjective Her breathing is much better. No cough. No fevers or chills. Good appetite. No leg edema. She continues to have a mild rapid ventricular response but denies palpitations or chest pain. No difficulties with diarrhea. She is a Holguin and but is rarely ever removed today. No overnight events Exam Vital Signs Vital Sign - Last Date Time Temp Pulse Resp B/P Pulse Ox O2 Delivery O2 Flow Rate FiO2 02/10/17 07:38 36.7 108 22 111/71 93 Room Air 02/10/17 03:55 1.00 02/08/17 10:00 40 Intake and Output 02/09/17 02/09/17 02/10/17 Cumulative From/Thru 15:00 23:00 07:00 02/07/17 21:00 - 02/10/17 06:45 Intake Total 1090 ml 1058 ml 3421 ml Output Total 600 ml 1800 ml 5100 ml Balance 490 ml -742 ml -1679 ml Intake Oral 863 ml 900 ml 2643 ml IV Total 227 ml 158 ml 778 ml Output Urine Total 600 ml 1800 ml 5100 ml Exam Alert and oriented -3, no distress. Fluent speech Anicteric sclera. Lungs are clear with normal rate and effort, decreased breath sounds and rales in the bases. Heart is irregular without murmur gallop or rub, mild tachycardia Abdomen soft nontender, flat Extremities are free of edema. Skin is free of rash or lesions. IVs and Medications Medications Reviewed: Medications were reviewed in detail Lab and Diagnostics Result Diagram: 02/10/1725202/10/17 0253 X-Rays, CTs and MRIs PROCEDURE: X-RAY CHEST ONE VIEW, PORTABLE 1. Cardiomegaly with mild pulmonary edema and small pleural effusions compatible with congestive heart failure. Dictated by: Pedro Storey M.D. on 02/08/2017 at 8:42 Assessment & Plan Patient is a pleasant 76-year-old female with history of A. fib with RVR chronically anticoagulated on warfarin, COPD, and CHF. She has been been experiencing worsening shortness of breath and respiratory distress over the past week. Patient was admitted to the hospital for shortness of breath, COPD exacerbation, versus CHF exacerbation, and A. fib with RVR. Patient was placed on and he noticed cardiac monitoring and received diltiazem drip and her antiarrhythmic medications are restarted. #. Acute respiratory failure with hypoxia, improving. - Likely secondary to CHF and COPD exacerbation. - She was diuresed with Lasix yesterday.Will give her one dose and Lasix 40mg IV and monitor her BP. - Continue O2 support. Patient is not on O2 at home at baseline. - Treatment as below. #. Acute on chronic diastolic heart failure, improving. - Patient presented with worsening SOB. No increase in edema per the patient. - Pro BNP 1921 - Chest x-ray showed diffuse interstitial markings consistent with CHF. - Patient has been receiving diuresis with IV Lasix. She takes Torsemide 20mg at home. Will hold home Torsemide given low BP. Follow clinically and add Lasix as needed. - Patient had complete echo done on 09/15/2013 which showed: Normal left ventricular size, wall thickness, and wall motion. Left ventricular LVEF was 60 -65%, moderate mitral regurg. - Repeat Echo report pending. Lasix 40 mg IV 1 # Acute COPD exacerbation, present on admission. - Patient not on home oxygen. - PFT on 12/04/2016 showed a significant improvement in her PFTs with bronchodilator of 14%. Impression was No airflow obstruction, significant response to inhaled bronchodilator seen, lung volumes are normal, diffuse capacity to his mildly reduced. - Continue supplemental oxygen as needed and slowly titrate off. Goal SpO2 88% - 92%. - Continue 40 mg prednisone daily - Continue Xopenex every 2 hours as needed for shortness of breath. Decrease prednisone to 20 daily # A. fib with RVR, present remission, active - Chronically anticoagulated on warfarin, INR is therapeutic now. - Diltiazem drip is maxed at 15 mg per hour with moderate rate control with heart rate in the 130s. Increase oral diltiazem to 60 mg by mouth every 6 hours and will slowly titrate the Diltiazem ggt. - Continue home Flecainide and Carvedilol 25mg BID. - Continuous cardiac monitoring with remote telemetry - We will continue home medication flecainide. Curbside consultation with Dr. Easley, who suggested that the elevated HR is likely due to the respiratory failure. Once her symptoms improve further and her HR is still uncontrolled, we can formally consult card. - TSH ordered and pending. Add digoxin 0.25 mg IV 1 with a daily dose to follow. Attempt to wean Cardizem drip. # Acute leukocytosis and urinary tract infection with Klebsiella, present on admission, active and stable -Procalcitonin 0.17. -WBC 11.3, PMNs 68.9%, lymphs 19.3% on admission. Currently stable. -No other sign of infections. -Continue to monitor with CBC -CXR showed diffuse interstitial markings consistent with CHF. -Prelim urine culture grew gram negative shelbie. Will continue with Ceftriaxone until culture result comes back. Day #3. Continue ceftriaxone # Hyperglycemia present on admission, improved. - A1c 6.1 - Follow clinically Chronic problems #Coronary artery disease, status post stenting 2010 - Followed by railroad mechanic Dr. Gaines - Presume stable. Patient is asymptomatic. - Continue ASA and statin #Hypertension - Hold home Lisinopril, Imdur, and Torsemide in light of low BP. - Lasix IV as above. #Behcet's syndrome Disposition: Admitted to in patient service with expected length of stay greater than 2 days, secondary to severity of presenting symptoms, treatment plan, complexity of clinical work up, and risk of adverse events. CODE STATUS: Code status: DNR with short term ventilatory support. PCP: Antonio Landis Cardiology: Dr. Gaines DVT PE prophylaxis: SCD's/Enoxiparin/SubQ heparin Q8H Contact: We will DC Holguin today and improve ambulation and activity. GI Prophylaxis: Not indicated VTE Prophylaxis: Theraputic Anticoag with Warfarin Resuscitation Status: Limited Interventions (patient is DO NOT RESUSCITATE with short-term intubation and ventilator support) Chance Torre MD Feb 10, 2017 08:14
--- NOTE | 2017-02-10 08:35 | PCM.PHAPRO ---
Progress Date of Service: Feb 10, 2017 Warfarin dosing Date Feb 08-Feb 09-Feb 10-Feb INR 1.71 1.67 2.74 2.76 INR change -0.04 1.07 0.02 Warf Dose 4.5 4.5MG HOLD 2MG Rudi Gunderson Feb 10, 2017 08:35
[2017-02-10] MEDS: Diltiazem Inj 125 MG in 0.9% Sodium Chloride 100 ML, Pharmacy To Mix 1 EA IV SCH ×2 (09:17→17:05)
--- NOTE | 2017-02-10 15:49 | NUR ---
Social Work: Multidisciplinary Rounds Pt discussed in MD rounds. SW status and d/c needs continue to remain unknown and unchanged from day prior; pt still on dilt drip. Anticipate discharge home but sw continuing to follow for needs. YUNIEL Villegas
--- NOTE | 2017-02-10 15:50 | NUR ---
[facility] Signed
--- NOTE | 2017-02-10 18:24 | NUR ---
Bradley/O2 Pt's bradley catheter removed per MD order this am, Pt spontaneously voiding without issue for remainder of shift. Pt's SPO2 sats 92/93% on RA, Pt left O2 off for shift, Pt denied increase in SOB.
[2017-02-10] MEDS: Senna-Docusate 8.6-50 mg Tablet PO PRN (20:42)
[2017-02-10] MEDS: HYDROcodone-APAP 10-325 mg PO PRN (22:33)
[2017-02-11] VITALS (9 sets, daily range): BP systolic 114–149; BP diastolic 63–98; PULSE 100–133; RESP 14–23; O2SAT 93–95
[2017-02-11] MEDS: Sodium Chloride LOK Flush 10 mL Syringe IVFLUSH SCH ×4 (00:30→23:06)
[2017-02-11] MEDS: Diltiazem Inj 125 MG in 0.9% Sodium Chloride 100 ML, Pharmacy To Mix 1 EA IV SCH ×3 (02:09→19:46)
[2017-02-11 04:00] LABS: INR 1.57 ratio
--- NOTE | 2017-02-11 04:46 | NUR ---
Heart Rate/Respiratory Heart Rate 100-120 while awake and with activity, will decrease mid 80's to low 90's when resting.Weaned from oxymask, SPO2 93-96% on RA. Some increase in RR while out of bed, returns to baseline with rest. VSS, Tele AFib
[2017-02-11] MEDS: cefTRIAXone Inj 1,000 MG in Dextrose 5% Minibag Plus 50 ML IV SCH (08:33)
[2017-02-11] MEDS: HYDROcodone-APAP 10-325 mg PO PRN ×2 (08:34→23:03)
[2017-02-11] MEDS: predniSONE 20 mg Tablet PO SCH (08:34)
[2017-02-11] MEDS: LORazepam 0.5 mg Tablet PO SCH (08:34)
--- NOTE | 2017-02-11 10:15 | PCM.PHAPRO ---
Progress Date of Service: Feb 11, 2017 Warfarin dosing Date -Feb 08-Feb 09-Feb 10-Feb 11-Feb INR 1.71 1.67 2.74 2.76 1.57 INR change -0.04 1.07 0.02 -1.19 Warf Dose 4.5 4.5MG HOLD 2MG 3MG Rudi Gunderson Feb 11, 2017 10:15
--- NOTE | 2017-02-11 11:06 | PCM.PNMED ---
Subjective Date of Service Feb 11, 2017 Subjective No acute event overnight. Telemetry shows Afib with Heart Rate 100-120 with activity, will decrease mid 80's to low 90's when resting. Today, patient reports to feel well with no symptoms. She reports significant improvement of her symptoms, but not yet back to baseline. She gets SOB easily with activities, however has no symptoms at rest. Exam Vital Signs Vital Sign - Last Date Time Temp Pulse Resp B/P Pulse Ox O2 Delivery O2 Flow Rate FiO2 02/11/17 05:26 129 02/11/17 02:55 36.5 14 124/78 93 02/10/17 23:19 Room Air 02/10/17 03:55 1.00 02/08/17 10:00 40 Intake and Output 02/10/17 02/10/17 02/11/17 Cumulative From/Thru 15:00 23:00 07:00 02/07/17 21:00 - 02/11/17 05:34 Intake Total 1653 ml 473 ml 5547 ml Output Total 2100 ml 1000 ml 8200 ml Balance -447 ml -527 ml -2653 ml Intake Oral 1440 ml 300 ml 4383 ml IV Total 213 ml 173 ml 1164 ml Output Urine Total 2100 ml 1000 ml 8200 ml # Bowel Movements 0 0 Exam General: Alert in no apparent distress. Appears comfortable at room air. No conversation dyspnea. HEENT: NCAT, EOMI. Anicteric sclera. Mucosal membrane dry. Neck: supple, no JVD noted. Lungs: relatively clear with mild rales. No wheezes. No increased work of breathing. No accessory muscle use. Heart: irregular irregular without murmur gallop or rub, tachycardic. Abdomen: obese, soft, nondistended, nontender, active bowel sound. Extremities: trace edema in bilateral lower extremities. No clubbing or cyanosis. Skin: warm and dry. free of rash or lesions. Psych: appropriate mood and affect. IVs and Medications Medications Reviewed: Medications were reviewed in detail Lab and Diagnostics Result Diagram: 02/10/1725202/10/17252 X-Rays, CTs and MRIs PROCEDURE: X-RAY CHEST ONE VIEW, PORTABLE 1. Cardiomegaly with mild pulmonary edema and small pleural effusions compatible with congestive heart failure. Dictated by: Pedro Storey M.D. on 02/08/2017 at 8:42 Cardiac Echo Impressions Echo 02/08/17 Interpretation Summary The patient was in atrial fibrillation with rapid ventricular response during the exam with a heart rate exceeding 100 bpm. The left ventricle is grossly normal size. The left ventricular ejection fraction is normal. The ejection fraction is estimated to be 60-65%. LVEF has not changed since prior study. There are no obvious focal wall motion abnormalities noted but poor endocardial definition reduces the sensitivity for the detection of such. The right ventricle is not well visualized. Right ventricular systolic pressure is estimated to be 25 mmHg plus the clinically estimated CVP which cannot be estimated on this exam. The left atrium is mildly dilated. Right atrium not well visualized. There is moderate mitral regurgitation. MR is slightly worse since prior transthoracic echo study. There is no other significant valvular heart disease. The aortic root is normal size. Assessment & Plan Patient is a pleasant 76-year-old female with history of A. fib with RVR chronically anticoagulated on warfarin, COPD, and CHF. She has been been experiencing worsening shortness of breath and respiratory distress over the past week. Patient was admitted to the hospital for shortness of breath, COPD exacerbation, versus CHF exacerbation, and A. fib with RVR. Patient was placed on and he noticed cardiac monitoring and received diltiazem drip and her antiarrhythmic medications are restarted. #. Acute respiratory failure with hypoxia, improving. - Likely secondary to CHF and COPD exacerbation. - She has been getting Lasix 40mg IV daily for diuresis. Will hold further Lasix as lung exam is relative clear and mild elevated Cr today. - Continue O2 support. Patient is not on O2 at home at baseline. - Treatment as below. #. Acute on chronic diastolic heart failure, improving. - Patient presented with worsening SOB. No increase in edema per the patient. - Pro BNP 1921 - Repeat Echo showed EF 60-65%. LVEF has not changed since prior study. - Chest x-ray showed diffuse interstitial markings consistent with CHF on admission. Repeat CXR today showed decreased pulmonary edema but persistent pleural effusion. - Patient has been receiving diuresis with IV Lasix. Follow clinically and add Lasix as needed. # Acute COPD exacerbation, present on admission. - Patient not on home oxygen. - PFT on 12/04/2016 showed a significant improvement in her PFTs with bronchodilator of 14%. Impression was No airflow obstruction, significant response to inhaled bronchodilator seen, lung volumes are normal, diffuse capacity to his mildly reduced. - Continue supplemental oxygen as needed and slowly titrate off. Goal SpO2 88% - 92%. - Continue 20 mg prednisone daily - Continue Xopenex every 2 hours as needed for shortness of breath. # A. fib with RVR, present remission, active - Chronically anticoagulated on warfarin, INR is subtherapeutic today. Continue Warfarin per pharmacy. - TSH normal - Diltiazem drip is maxed at 15 mg per hour with moderate rate control with heart rate in the 100s-130s. Increase oral diltiazem to 90 mg by mouth every 6 hours and will slowly titrate the Diltiazem ggt. - Continue home Flecainide and Carvedilol 25mg BID. - Continuous cardiac monitoring with remote telemetry - Continue digoxin 0.25 mg PO daily. Attempt to wean Cardizem drip. # Acute leukocytosis and urinary tract infection with Klebsiella, present on admission, active and stable -Procalcitonin 0.17. -WBC 11.3, PMNs 68.9%, lymphs 19.3% on admission. Currently stable. -No other sign of infections. -Continue to monitor with CBC -CXR showed diffuse interstitial markings consistent with CHF. -Will continue with Ceftriaxone. Culture shows Klebsiella sensitivity to Ceftriaxone. Day #3. # Hyperglycemia present on admission, improved. - A1c 6.1 - Follow clinically Chronic problems #Coronary artery disease, status post stenting 2010 - Followed by disaster recovery consultant Dr. Gaines - Presume stable. Patient is asymptomatic. - Continue ASA and statin #Hypertension - Hold home Lisinopril and Imdur in light of low BP. - Lasix IV as indicated. 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 CODE STATUS: Code status: DNR with short term ventilatory support. PCP: Antonio Landis Cardiology: Dr. Gaines DVT PE prophylaxis: SCD's/Enoxiparin/SubQ heparin Q8H Contact: We will DC [place] today and improve ambulation and activity. Pain Evaluation: Adequate Pain Control GI Prophylaxis: Not indicated VTE Prophylaxis: Theraputic Anticoag with Warfarin Resuscitation Status: Limited Interventions (patient is DO NOT RESUSCITATE with short-term intubation and ventilator support) Attending Statement Patient seen and examined with house staff. Agree with all attached documentation. Breanna Burleson DO Feb 11, 2017 07:05 Chance Torer MD Feb 11, 2017 18:26
--- NOTE | 2017-02-11 11:31 | DRSVH ---
PROCEDURE: X-RAY CHEST ONE VIEW, PORTABLE ([id number]) INDICATIONS: CHF exacerbation TECHNIQUE: One view of the chest was acquired. COMPARISON: [facility], CR, XR CHEST 1VW (PORTABLE), 02/07/2017, 21:09. FINDINGS: Surgical changes and devices: None. Lungs and pleura: The is mild pulmonary edema which appears slightly decreased from the prior study. There are bandlike opacities in the medial right lung base compatible with atelectasis or consolida tion. There are small bilateral pleural effusions. Mediastinum: Mediastinal contours appear unchanged. Heart size is normal. Bones and chest wall: No suspicious bony lesions. Overlying soft tissues appear unremarkable. IMPRESSION: 1. Slightly decreased pulmonary edema. 2. Persistent small pleural effusions. 3. Medial right basilar atelectasis or consolidation. Dictated by: Pedro Storey M.D. on 02/11/2017 at 11:27 Approved by: Pedro Storey M.D. on 02/11/2017 at 11:30
--- NOTE | 2017-02-11 14:38 | NUR ---
Social Work: Multidisciplinary Rounds Pt discussed in am rounds. Pt is not medically stable for discharge at this time. Anticipate another day. Sw status remains unchanged; anticipate pt to d/c home when medically stable with no sw needs. HYDRODYNAMICIST to continue to follow YUNIEL Villegas
--- NOTE | 2017-02-11 18:07 | NUR ---
Activity Pt up to BSC commode numerous times today. Pt reported that breathing with activity has continued to improve and that she felt less weak today.
[2017-02-11] MEDS: LORazepam 0.5 mg Tablet PO PRN (23:14)
[2017-02-12] VITALS (9 sets, daily range): BP systolic 118–140; BP diastolic 74–92; PULSE 92–127; RESP 18–23; O2SAT 91–98
[2017-02-12 04:29] LABS: Mean Corpuscular Hemoglobin 28.6 pg (27.0-35.0); Mean Corpuscular Volume 89.5 fL (81-100)
[2017-02-12 04:47] LABS: INR 1.38 ratio
[2017-02-12 04:53] LABS: Magnesium 2.1 mg/dL (1.6-2.6)
--- NOTE | 2017-02-12 06:41 | NUR ---
O2 /Tele / BPs SpO2 RA sats at HS only 89-90%. Pt placed on O2 @ 2-3 L to keep her sats >92% while sleeping, SpO2 sats remained 93-95% while on O2. No c/o chest pain, Tele Afib RVR with HR 100s to 144s. Pt on IV Cardizem at 15mg/hour and PO Cardizem 90mg every 6 hours. BPs stable and Pt remained afebrile all night.
--- NOTE | 2017-02-12 09:30 | PCM.PHAPRO ---
Progress Warfarin dosing WARFARIN Indication: AFib Home dose 4.5mg/d x/Mondays 3mg Currently on Enoxaparin at tx dose Recent dosing: Date Feb 08-Feb 09-Feb 10-Feb 11-Feb 12-Feb 13-Feb 14-Feb 15-Feb 16-Feb 17-Feb 18- Feb INR 1.71 1.67 2.74 2.76 1.57 1.38 INR change -0.04 1.07 0.02 -1.19 -0.19 Warf Dose 4.5 4.5MG HOLD 2MG 3MG 4.5 a/ Afib with recalcitrant rate control now on high dose diltiazem (480mg/d), carvedilol, flecainide, and HFpEF. Non-uniform response to warfarin may be related to fluctuating CO 2/2 above. Subtx INR necessitating bridging with enoxaparin p/ Home dose of 4.5mg/d seems appropriate based on past few days response. Keshav Briscoe Pharm D Feb 12, 2017 09:30
--- NOTE | 2017-02-12 09:47 | PCM.PNMED ---
Subjective Date of Service Feb 12, 2017 Subjective No acute event overnight. Patient remains in Afib with HR 100s to 140s on IV Cardizem at 15mg/hour and PO Cardizem 90mg every 6 hours. BPs stable. This morning, patient states to feel well. She is on NC at 2L but does not feel like she needs to be on O2. She reports a good night sleep and has no complaint. She denies any SOB, CP, headache, dizziness, nausea, or vomiting. Exam Vital Signs Vital Sign - Last Date Time Temp Pulse Resp B/P Pulse Ox O2 Delivery O2 Flow Rate FiO2 02/12/17 03:45 36.4 92 18 140/80 94 Nasal Cannula 3.00 02/08/17 10:00 40 Intake and Output 02/11/17 02/11/17 02/12/17 Cumulative From/Thru 15:00 23:00 07:00 02/07/17 21:00 - 02/12/17 06:32 Intake Total 1388 ml 1090 ml 8025 ml Output Total 1050 ml 1000 ml 71595 ml Balance 338 ml 90 ml -2225 ml Intake Oral 1150 ml 1036 ml 6569 ml IV Total 238 ml 54 ml 1456 ml Output Urine Total 1050 ml 1000 ml 51484 ml # Voids 2 2 # Bowel Movements 1 1 Exam General: Alert in no apparent distress. Appears comfortable. No conversation dyspnea. HEENT: NCAT, EOMI. Anicteric sclera. Mucosal membrane dry. Neck: supple, no JVD noted. Lungs: relatively clear with mild rales. No wheezes. No increased work of breathing. No accessory muscle use. Heart: irregular irregular without murmur gallop or rub, tachycardic. Abdomen: obese, soft, nondistended, nontender, active bowel sound. Extremities: trace edema in bilateral lower extremities. No clubbing or cyanosis. Skin: warm and dry. free of rash or lesions. Psych: appropriate mood and affect. IVs and Medications Medications Reviewed: Medications were reviewed in detail Lab and Diagnostics Result Diagram: 02/12/1733902/12/17339 X-Rays, CTs and MRIs PROCEDURE: X-RAY CHEST ONE VIEW, PORTABLE 1. Cardiomegaly with mild pulmonary edema and small pleural effusions compatible with congestive heart failure. Dictated by: Pedro Storey M.D. on 02/08/2017 at 8:42 Cardiac Echo Impressions Echo 02/08/17 Interpretation Summary The patient was in atrial fibrillation with rapid ventricular response during the exam with a heart rate exceeding 100 bpm. The left ventricle is grossly normal size. The left ventricular ejection fraction is normal. The ejection fraction is estimated to be 60-65%. LVEF has not changed since prior study. There are no obvious focal wall motion abnormalities noted but poor endocardial definition reduces the sensitivity for the detection of such. The right ventricle is not well visualized. Right ventricular systolic pressure is estimated to be 25 mmHg plus the clinically estimated CVP which cannot be estimated on this exam. The left atrium is mildly dilated. Right atrium not well visualized. There is moderate mitral regurgitation. MR is slightly worse since prior transthoracic echo study. There is no other significant valvular heart disease. The aortic root is normal size. Assessment & Plan Patient is a pleasant 76-year-old female with history of A. fib with RVR chronically anticoagulated on warfarin, COPD, and CHF. She has been been experiencing worsening shortness of breath and respiratory distress over the past week. Patient was admitted to the hospital for shortness of breath, COPD exacerbation, versus CHF exacerbation, and A. fib with RVR. Patient was placed on and he noticed cardiac monitoring and received diltiazem drip and her antiarrhythmic medications are restarted. #. Acute respiratory failure with hypoxia, improving. - Likely secondary to CHF and COPD exacerbation. - She has been getting Lasix 40mg IV daily for diuresis. Will add Torsemide 40mg x once. If tolerates well will make it daily. - Continue O2 support. Patient is not on O2 at home at baseline. - Treatment as below. #. Acute on chronic diastolic heart failure, improving. - Patient presented with worsening SOB. No increase in edema per the patient. - Pro BNP 1921 - Repeat Echo showed EF 60-65%. LVEF has not changed since prior study. - Chest x-ray showed diffuse interstitial markings consistent with CHF on admission. Repeat CXR showed decreased pulmonary edema but persistent pleural effusion. - Patient has been receiving diuresis with IV Lasix. Will start Torsemide 40mg daily. - Good urine output. Continue to follow I/O and daily weight. # Acute COPD exacerbation, present on admission. - Patient not on home oxygen. - PFT on 12/04/2016 showed a significant improvement in her PFTs with bronchodilator of 14%. Impression was No airflow obstruction, significant response to inhaled bronchodilator seen, lung volumes are normal, diffuse capacity to his mildly reduced. - Continue supplemental oxygen as needed and slowly titrate off. Goal SpO2 88% - 92%. - Continue 20 mg prednisone daily. Taper to 10mg tomorrow. - Continue Xopenex every 2 hours as needed for shortness of breath. # A. fib with RVR, present remission, active - Chronically anticoagulated on warfarin, INR is subtherapeutic today. Continue Warfarin per pharmacy. - TSH normal - Diltiazem drip is maxed at 15 mg per hour with moderate rate control with heart rate in the 100s-130s. Increase oral diltiazem to 120 mg by mouth every 6 hours and will slowly titrate the Diltiazem ggt. - Cardiology consulted. Appreciate their recommendations. - Continue home Flecainide and Carvedilol 25mg BID. - Continuous cardiac monitoring with remote telemetry - Continue digoxin 0.25 mg PO daily. Attempt to wean Cardizem drip. - Continue Warfarin per pharmacy. INR subtherapeutic. Continue Lovenox until INR therapeutic. # Urinary tract infection with Klebsiella, present on admission, active and stable -Procalcitonin 0.17. -WBC 11.3, PMNs 68.9%, lymphs 19.3% on admission. Currently stable. -No other sign of infections. -Continue to monitor with CBC -CXR showed diffuse interstitial markings consistent with CHF. -Will continue with Ceftriaxone. Culture shows Klebsiella sensitivity to Ceftriaxone. Day #4. Last day tomorrow. # Hyperglycemia present on admission, improved. - A1c 6.1 - Follow clinically Chronic problems #Coronary artery disease, status post stenting 2010 - Followed by production sampler Dr. Gaines - Presume stable. Patient is asymptomatic. - Continue ASA and statin #Hypertension - Hold home Lisinopril and Imdur in light of low BP. - Lasix IV as indicated. 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 CODE STATUS: Code status: DNR with short term ventilatory support. PCP: Antonio Landis Cardiology: Dr. Gaines DVT PE prophylaxis: SCD's/Enoxiparin/SubQ heparin Q8H Pain Evaluation: Adequate Pain Control GI Prophylaxis: Not indicated VTE Prophylaxis: Sub-Q Enoxaparin Resuscitation Status: Limited Interventions (patient is DO NOT RESUSCITATE with short-term intubation and ventilator support) Attending Statement The patient was seen and examined with staff. Agree with all attached documentation. Breanna Burleson DO Feb 12, 2017 09:47 Chance Torre MD Feb 13, 2017 16:25
[2017-02-12] MEDS: cefTRIAXone Inj 1,000 MG in Dextrose 5% Minibag Plus 50 ML IV SCH (10:10)
[2017-02-12] MEDS: Diltiazem Inj 125 MG in 0.9% Sodium Chloride 100 ML, Pharmacy To Mix 1 EA IV SCH ×2 (10:11→18:19)
[2017-02-12] MEDS: predniSONE 20 mg Tablet PO SCH (10:15)
[2017-02-12] MEDS: Sodium Chloride LOK Flush 10 mL Syringe IVFLUSH SCH ×3 (10:16→22:45)
[2017-02-12] MEDS: LORazepam 0.5 mg Tablet PO SCH ×2 (10:17→22:31)
[2017-02-12] MEDS: HYDROcodone-APAP 10-325 mg PO PRN ×2 (10:25→22:32)
--- NOTE | 2017-02-12 15:58 | NUR ---
Social Work: Multidisciplinary Rounds Pt discussed in AM rounds this morning. Pt is not medically stable for discharge at this time. Pt continues to be in AFIB with RVR and remains on drip. Anticipated discharge home via POV when medically ready. CNC MACHINIST 2ND SHIFT to continue to follow. YUNIEL Smiley
--- NOTE | 2017-02-12 16:34 | NUR ---
spiritual care: follow up conversational visit. pt described medical progress "feeling better" but concern about her continued fast heartrate. Pt described past experiences with prednisone as she reflected about risks/benefits of medical treatments in her life. pt in good spirits, in room and she expressed appreciation for [facility] spiritual care visitors. following
--- NOTE | 2017-02-12 18:38 | NUR ---
O2 Pt placed back on 3L O2 on NOC shift, Pt weened back off O2 in the late am with SPO2 sat 93% on RA, Pt denied increase in SOB, Pt remained on RA for remainder of shift.
[2017-02-12] MEDS: LORazepam 0.5 mg Tablet PO PRN (22:31)
--- NOTE | 2017-02-12 23:12 | CONS ---
[address] [address] CARDIOLOGY INPATIENT CONSULTATION REPORT PATIENT: RENY TAN : 1940 MR#: [id number] ADMIT: 02/08/2017 JOB ID: [id number] DATE OF SERVICE: 02/12/2017 REASON FOR CONSULTATION: Shortness of breath, atrial fibrillation, with rapid ventricular response. HISTORY OF PRESENT ILLNESS: This is a very pleasant 76-year-old lady with history of coronary artery disease, status post bare-metal stents in the LAD on September 30, 2012, hyperlipidemia, hypertension, history of paroxysmal atrial fibrillation, status post cardioversion in 2013 and 2014. She also has Behcet's syndrome. On 02/07/2017 she was admitted to [facility] with severe shortness of breath in the setting of atrial fibrillation with RVR. The patient states that since last fall she has been having shortness of breath, which from the beginning was not so pronounced, but later became worse. The shortness of breath got worse especially in December and January. Because of her shortness of breath she saw [employer]op[employer] sewer. Last time she saw [employer] sewer on December 06, 2016, she saw Dr. Mac, who noted that her exertional dyspnea seems to be due to asthma. Her PFTs and CT were stable without any evidence of interstitial lung disease and spirometry was not consistent with COPD. She was prescribed albuterol and montelukast. The patient tells me that those meds helped some but not much. Her shortness of breath got worse, and couple days before admission to [facility] she felt particularly very bad with severe dyspnea on exertion on small distances and even small exertion. She denied palpitations, denies having any presyncopal or syncopal episodes. Because of chronic back pain she usually lies down in recliner. She had a hard time sleeping at night because of difficulty breathing. Eventually, on 02/07/2017 she was feeling so bad that they called 911 and she found to be in atrial fibrillation with RVR. She was given albuterol and 20 mg Cardizem which improved her symptoms and reduced her heart rate from 180s to 110 beats per minute. I cannot locate the strips showing her heart rate of 180 bpm. She was brought to [facility] Emergency Department and she was diuresed and she was put on diltiazem drip and diltiazem pills po. The patient tells me that since her arrival to hospital and medical treatment, her difficulty breathing improved. She tells me that also that before admission when she had difficulty breathing she had a feeling of a lump heaviness in her chest, which since admission and treatment is gone. On admission she was hemodynamically stable, she was not anemic, had normal kidney function and electrolytes. She had an elevated proBNP. Also, on admission urinary tract infection with Klebsiella was present and she was treated with antibiotic, ceftriaxone. On admission her heart rate was in the 130s, she was in atrial fibrillation. As an outpatient she has been anticoagulated on warfarin. Patient tells me that she has a remote smoking history, quit smoking 25 years ago, and before that used to smoke a pack a day for 30 years. Denies alcohol use. Denies recreational drug use. She has a positive family history of coronary artery disease in maternal grandfather who had a heart attack in his 20s. REVIEW OF SYSTEMS: A 12-point of review of systems are negative except the ones mentioned in HPI. PAST MEDICAL HISTORY: Coronary artery disease, status post bare-metal stent placement in LAD in September 30, 2012, hyperlipidemia, hypertension, paroxysmal atrial fibrillation, chronically anticoagulated on warfarin, Behcet's disease since 2003, history of gastrointestinal bleeding in 1988, GERD, hyperlipidemia. SURGICAL HISTORY: Total abdominal hysterectomy and bilateral salpingo-oophorectomy. PHYSICAL EXAMINATION: Vital signs: Temperature 36.6, pulse 98 beats per minute, respiratory 20 per minute, blood pressure 118/78 mmHg, pulse oximetry 91% on room air. General: No acute distress, comfortably lying in the bed, speaking in full sentences, cooperative. HEENT: Mucous membranes moist, sclerae anicteric. Neck: Supple. No thyromegaly. Lungs: Slightly decreased breathing sounds bilaterally. No crackles appreciated. Heart: Irregularly irregular rhythm, no murmur appreciated, JVP is not elevated. Abdomen: Soft, nontender with palpation. Extremities: No lower extremity edema. No clubbing, no cyanosis. Skin: Dry and warm. Neurologic: Alert and oriented x3, no gross abnormalities. LABORATORIES: Sodium 144, potassium 3.9, chloride 106, carbon dioxide 21, BUN 34, creatinine 0.76, glucose 115, calcium 9.3, magnesium 2.1. Her proBNP is 1227. Procalcitonin is 0.17. She had a normal TSH of 2.54. Had negative troponins. White blood cells 9.7, red blood cells 3.99, hemoglobin 11.4, hematocrit 35.7, platelets 316. Chest x-ray from February 11, 2017, showed slightly decreased pulmonary edema, persistent small pleural effusions, medial right basilar atelectasis or consolidation. She had an echo done on February 09, 2017, which showed preserved cardiac function and moderate MR, and slightly enlarged left atrium. Her home cardiac medications include atorvastatin 40 mg daily, carvedilol 25 mg twice a day, flecainide 50 mg one tablet twice a day, gemfibrozil 600 mg tablet one tablet twice a day, Imdur 30 mg one tablet daily, lisinopril 20 mg twice a day. She is also anticoagulated on warfarin. Telemetry showed that she has been in atrial fibrillation with rapid ventricular response with heart rate in the 130s up to 150s, although today at 1 p.m. noticed her heart rate trended down and she has been in 80s and 90s, although periodically still going up to 130s. ASSESSMENT AND PLAN: This is a 76-year-old lady with a history of coronary artery disease and stent placement in the past, hyperlipidemia, hypertension, paroxysmal atrial fibrillation, anticoagulated on warfarin, Behcet's syndrome, who was admitted to [facility] on 02/07/2017, with worsening shortness of breath and dyspnea on exertion in the setting of atrial fibrillation with rapid ventricular response. She was diuresed and started on diltiazem IV, in addition to diltiazem p.o. She is also on her outpatient flecainide 50 mg b.i.d. and on carvedilol 25 mg b.i.d. She was diuresed and improved clinically. Her shortness of breath improved and heart rate showed signs of improvement today, although still periodically she is tachycardic. 1. Severe shortness of breath/dyspnea on exertion, improved. Her symptoms likely were secondary to atrial fibrillation with RVR which triggered flash pulmonary edema and moderate MR was contributing also. In addition, she has asthma which was also contributing to her symptoms. She was diuresed and she is currently on diltiazem drip and diltiazem p.o. She improved clinically and she does not have signs of volume overload on exam. Currently, she is on diltiazem 120 mg every 6 hours, carvedilol 25 mg twice a day, she is on flecainide 50 mg b.i.d., and she is also on digoxin 0.125 mg daily. Per telemetry, her heart rate got better today starting at 1 p.m. in 80s and 90s, but she still periodically gets in 110s to 130 beats per minute when she is physically active. On admission, her INR was subtherapeutic 1.67. After that, it was therapeutic, and on February 11, yesterday, it was subtherapeutic 1.57. She was started on therapeutic dose of Lovenox 100 mg twice a day, as abridge while she is on warfarin. At this point, would recommend to increase the dose of flecainide from 50 mg daily to 100 mg daily. Continue the same dose of carvedilol and diltiazem drip and diltiazem p.o. I do not think she is a good candidate for amiodarone taking in mind her pulmonary problems and actually in the past she used to be on amiodarone and she was switched to flecainide for that reason. She had a Lexiscan stress test done in 2016, and it was reported that she had a normal myocardial perfusion study with no evidence of ischemia or fixed defect. We would plan on cardioversion tomorrow, and for that reason, we would like to keep her n.p.o. from tonight. 2. Atrial fibrillation with rapid ventricular response. 3. History of asthma. 4. Urinary tract infection treated by hospitalist. This problem addressed by hospitalist team. 5. Hypertension. 6. Hyperlipidemia. 7. Behcet's syndrome. The case was discussed and management coordinated with child & adolescent psychiatrist rn clinical documentation, Dr. Marcos, who agreed with assessment and plan. MARLA
[2017-02-13] VITALS (11 sets, daily range): BP systolic 103–150; BP diastolic 46–93; PULSE 59–103; RESP 16–20; O2SAT 90–96
--- NOTE | 2017-02-13 00:29 | CONS ---
[address] [address] CONSULTATION REPORT PATIENT: RENY TAN : 1940 MR#: [id number] ADMIT: 02/08/2017 JOB ID: [id number] DATE OF SERVICE: 02/12/2017 REASON FOR CONSULTATION: Shortness of breath, atrial fibrillation with RVR, rapid ventricular response. CHIEF COMPLAINT: Shortness of breath. HISTORY OF PRESENT ILLNESS: This is a very pleasant 76-year-old lady with history of coronary artery disease, status post bare-metal stents in the LAD on September 30, 2012, hyperlipidemia, hypertension, history of paroxysmal atrial fibrillation, status post cardioversion in 2013 and 2014. She also has Behcet's syndrome/disease. She was admitted to [facility] on February____2016, with severe shortness of breath in the setting of atrial fibrillation with RVR. The patient states that since last fall she has been having shortness of breath, which from the beginning was not so pronounced, but later became worse. The shortness of breath got worse especially in December and January. Because of her shortness of breath she saw concert singer. Last time she saw concert singer on December 06, 2016, she saw Dr. Mac, who noted that her exertional dyspnea seems to be due to asthma. Her PFTs and CT were stable without any evidence of interstitial lung disease and spirometry was not consistent with COPD. She was prescribed albuterol and montelukast. The patient tells me that those inhalers helped some but not much. Her shortness of breath got worse and a couple days before admission to [facility] she felt particularly very bad with severe dyspnea on exertion on small distances and even small exertion. She denied having any chest pain or chest pressure, lightheadedness or palpitations, denies having any presyncopal or syncopal episodes. Because of her Behcet's disease and back pain she usually lies down in recliner. She had a hard time sleeping at night because of difficulty breathing. Eventually, on February 2016, she was feeling so bad that they called 911 and she found to be in atrial fibrillation with RVR. She was given albuterol and 20 mg Cardizem which improved her symptoms and reduced her heart rate from 180s to 110 beats per minute. I cannot locate the strips showing her heart rate of 180. She was brought to [facility] Emergency Department and she was diuresed and she was put on diltiazem drip and diltiazem pills also. The patient tells me that since her arrival to hospital and medical treatment her difficulty breathing improved. She tells me that also that before admission when she had difficulty breathing she had a feeling of a lump heaviness in her chest, which since admission and treatment in hospital that feeling of lump in her chest is gone. On admission she was hemodynamically stable, she was not anemic, had normal kidney function and electrolytes. She had an elevated proBNP. Also, on admission urinary tract infection with Klebsiella was present and she was treated with antibiotic, ceftriaxone. On admission her heart rate was in the 130s, she was in atrial fibrillation. As an outpatient she has been anticoagulated on warfarin. Patient tells me that she has a remote smoking history, quit smoking 25 years ago, and before that used to smoke a pack a day for 30 years. Denies alcohol use. Denies recreational drug use. She has a positive family history of coronary artery disease in maternal grandfather who had a heart attack in his 20s. REVIEW OF SYSTEMS: A 12-point of review of systems are negative except the ones mentioned in HPI. PAST MEDICAL HISTORY: Coronary artery disease, status post bare-metal stent placement in LAD in September 30, 2012, hyperlipidemia, hypertension, paroxysmal atrial fibrillation, chronically anticoagulated on warfarin, Behcet's disease since 2003, history of gastrointestinal bleeding in 1988, GERD, hyperlipidemia. SURGICAL HISTORY: Total abdominal hysterectomy and bilateral salpingo-oophorectomy. PHYSICAL EXAMINATION: Vital signs: Temperature 36.6, pulse 98 beats per minute, respiratory 20 per minute, blood pressure 118/78 mmHg, pulse oximetry 91% on room air. General: No acute distress, comfortably lying in the bed, speaking in full sentences, cooperative. HEENT: Mucous membranes moist, sclerae anicteric. Neck: Supple. No thyromegaly. Lungs: Slightly decreased breathing sounds bilaterally. No crackles appreciated. Heart: Irregularly irregular rhythm, no murmur appreciated, JVP is not elevated. Abdomen: Soft, nontender with palpation. Extremities: No lower extremity edema. No clubbing, no cyanosis. Skin: Dry and warm. Neurologic: Alert and oriented x3, no gross abnormalities. LABORATORIES: Sodium 144, potassium 3.9, chloride 106, carbon dioxide 21, BUN 34, creatinine 0.76, glucose 115, calcium 9.3, magnesium 2.1. Her proBNP is 1227. Procalcitonin is 0.17. She had a normal TSH of 2.54. Had negative troponins. White blood cells 9.7, red blood cells 3.99, hemoglobin 11.4, hematocrit 35.7, platelets 316. Chest x-ray from February 11, 2017, showed slightly decreased pulmonary edema, persistent small pleural effusions, medial right basilar atelectasis or consolidation. She had an echo done on February 09, 2017, which showed preserved cardiac function and moderate MR, and slightly enlarged left atrium. Her home cardiac medications include atorvastatin 40 mg daily, carvedilol 25 mg twice a day, flecainide 50 mg one tablet twice a day, gemfibrozil 600 mg tablet one tablet twice a day, Imdur 30 mg one tablet daily, lisinopril 20 mg twice a day. She is also anticoagulated on warfarin. Telemetry showed that she has been in atrial fibrillation with rapid ventricular response with heart rate in the 130s up to 150s, although today at 1 p.m. noticed her heart rate trended down and she has been in 80s and 90s, although periodically still going up to 130s. ASSESSMENT AND PLAN: This is a 76-year-old lady with a history of coronary artery disease and stent placement in the past, hyperlipidemia, hypertension, paroxysmal atrial fibrillation, anticoagulated on warfarin, Behcet's disease, who was admitted to [facility] on February 2016, with worsening shortness of breath and dyspnea on exertion in the setting of atrial fibrillation with rapid ventricular response. She was diuresed and started on diltiazem IV, in addition of diltiazem p.o. She is also on flecainide 50 mg b.i.d. and she is on carvedilol 25 mg b.i.d. She was diuresed and improved clinically. Her shortness of breath improved and heart rate showed signs of improvement today, although still periodically she is tachycardic. 1. Severe shortness of breath/dyspnea on exertion, improved. Her symptoms likely were secondary to atrial fibrillation with RVR which triggered flash pulmonary edema. In addition, she has asthma which was also contributing to her symptoms. The patient has moderate MR, which also could have been contributing to her shortness of breath and dyspnea on exertion, and all of this aggravated with atrial fibrillation with RVR. She was diuresed and she is currently on diltiazem drip and diltiazem p.o. She improved clinically and she does not have signs of volume overload on exam. Currently, she is on diltiazem 120 mg every 6 hours, carvedilol 25 mg twice a day, she is on flecainide 50 mg b.i.d., and she is also on digoxin 0.125 mg daily. Per telemetry, her heart rate got better today starting at 1 p.m. in 80s and 90s, but she still periodically gets in 110s to 130 beats per minute when she is physically active. On admission, her INR was subtherapeutic 1.67. After that, it was therapeutic, and on February 11, yesterday, it was subtherapeutic 1.57. She was started on therapeutic dose of Lovenox, Lovenox 100 mg twice a day, so basically she is on Lovenox bridging and she continues to be on warfarin. At this point, would recommend to increase the dose of flecainide from 50 mg daily to 100 mg daily. Continue the same dose of carvedilol and diltiazem drip and diltiazem p.o. I do not think she is a good candidate of amiodarone taking in mind her pulmonary problems and actually in the past she used to be on amiodarone and she was switched to flecainide for that reason. She even had a stress test done in 2016 which was a Lexiscan stress test, and it was reported that she had a normal myocardial perfusion study with no evidence of ischemia or fixed defect. a. We would plan on cardioversion tomorrow, and for that reason, we would like to keep her n.p.o. from tonight. 2. Atrial fibrillation with rapid ventricular response. 3. History of asthma. 4. Urinary tract infection treated by hospitalist. This problem addressed by hospitalist team. 5. Hypertension. 6. Hyperlipidemia. 7. Behcet's syndrome. The case was discussed and management coordinated with dynamic balancer set up worker cone chocolate dipper, Dr. Marcos, who agreed with assessment and plan.
[2017-02-13 03:48] LABS: Magnesium 2.2 mg/dL (1.6-2.6)
[2017-02-13] MEDS: Diltiazem Inj 125 MG in 0.9% Sodium Chloride 100 ML, Pharmacy To Mix 1 EA IV SCH (04:27)
[2017-02-13 04:29] LABS: INR 1.38 ratio
--- NOTE | 2017-02-13 06:34 | NUR ---
Shift Note 7p-7a VS stable and afebrile. Tele AFib with HR 70s to upper 120s. IV Cardizem still infusing at 15 mg/hour. Pt also receiving Cardizem po 120mgs every 6 hours. Pt mildly axious for planned SHAR and Cardioversion today, medicated 0.5mg PO Ativan at HS, Pt slept well. No c/o SOB, RA sats 93%, Pt placed on O2 @ 2L NC at HS, SpO2 sats 94%. Pt compliant with NPO status after midnight.
[2017-02-13] MEDS ORDERED: predniSONE 10 mg Tablet PO ONE ×2 (06:55→14:10)
--- NOTE | 2017-02-13 07:47 | CONS ---
[address] [address] CONSULTATION REPORT PATIENT: RENY TAN : 1940 MR#: [id number] ADMIT: 02/08/2017 JOB ID: [id number] DATE OF SERVICE: 02/12/2017 REQUESTED BY: Dr. Burleson. REASON FOR EVALUATION: Atrial fibrillation with rapid ventricular response. I saw and examined the patient. Please see Lester Puente's note for detail. The patient is well known to me from the clinic. IMPRESSION: 1. Paroxysmal atrial fibrillation with rapid ventricular response on admission, better controlled at the present time. 2. Congestive heart failure due to diastolic dysfunction and rapid heartbeat. 3. Coronary artery disease, status post bare metal stent to the left anterior descending artery on February 05, 2011. 4. Hypertension. 5. Hyperlipidemia. 6. Obesity. 7. Obstructive sleep apnea on BiPAP. 8. Behet's syndrome. 9. Moderate persistent asthma. PLAN: It is likely that the primary event was she went into atrial fibrillation with rapid ventricular response which then caused diastolic dysfunction due to inadequate filling time. She is currently receiving diltiazem 120 mg every 6 hours, digoxin 0.125 mg once daily and carvedilol 25 mg twice daily for rate control. I would like to discontinue digoxin since recent retrospective analysis demonstrated that the patient who received digoxin has a worse clinical outcome than the group that did not receive digoxin. I would like to increase the dose of flecainide from 50 mg b.i.d. to 100 mg b.i.d. in order to maintain her in sinus rhythm. She will be considered for atrial fibrillation ablation in the future. [facility]
[2017-02-13] MEDS ORDERED: Methohexital 10 mg/mL 50 mL Inj ONE (10:04)
[2017-02-13] MEDS ORDERED: Atropine 1 mg/10 mL (Code) Syringe ONE (10:07)
[2017-02-13] MEDS ORDERED: Flumazenil 0.1 mg/mL 5 mL Inj IV ONE (10:08)
--- NOTE | 2017-02-13 10:20 | PCM.PNMED ---
Subjective Date of Service Feb 13, 2017 Subjective No acute event overnight. Patient was a little anxious about morning cardioversion and was medicated with 05.mg PO Ativan. Tele AFib with HR 70s to upper 120s. IV Cardizem still infusing at 15 mg/hour and also receiving Cardizem po 120mgs every 6 hours. This morning, patient reports that she feels a little tired but well overall. She denies any SOB, CP, palpitations, nausea, vomiting, or dizziness. Exam Vital Signs Vital Sign - Last Date Time Temp Pulse Resp B/P Pulse Ox O2 Delivery O2 Flow Rate FiO2 02/13/17 07:58 36.6 81 17 125/85 96 Nasal Cannula 2.00 02/08/17 10:00 40 Intake and Output 02/12/17 02/12/17 02/13/17 Cumulative From/Thru 15:00 23:00 07:00 02/07/17 21:00 - 02/13/17 06:52 Intake Total 865 ml 357 ml 9247 ml Output Total 1800 ml 1200 ml 89918 ml Balance -935 ml -843 ml -4003 ml Intake Oral 625 ml 300 ml 7494 ml IV Total 240 ml 57 ml 1753 ml Output Urine Total 1800 ml 1200 ml 38307 ml # Voids 2 4 # Bowel Movements 0 1 Exam General: Alert in no apparent distress. Appears comfortable. No conversation dyspnea. HEENT: NCAT, EOMI. Anicteric sclera. Mucosal membrane dry. Neck: supple, no JVD noted. Lungs: bibasilar rales. No wheezes. No increased work of breathing. No accessory muscle use. Heart: irregular irregular without murmur gallop or rub, tachycardic. Abdomen: obese, soft, nondistended, nontender, active bowel sound. Extremities: trace edema in bilateral lower extremities. No clubbing or cyanosis. Skin: warm and dry. free of rash or lesions. Psych: appropriate mood and affect. IVs and Medications Medications Reviewed: Medications were reviewed in detail Lab and Diagnostics Result Diagram: 02/12/17 0340 02/13/17 0305 X-Rays, CTs and MRIs PROCEDURE: X-RAY CHEST ONE VIEW, PORTABLE 1. Cardiomegaly with mild pulmonary edema and small pleural effusions compatible with congestive heart failure. Dictated by: Pedro Storey M.D. on 02/08/2017 at 8:42 Cardiac Echo Impressions Echo 02/08/17 Interpretation Summary The patient was in atrial fibrillation with rapid ventricular response during the exam with a heart rate exceeding 100 bpm. The left ventricle is grossly normal size. The left ventricular ejection fraction is normal. The ejection fraction is estimated to be 60-65%. LVEF has not changed since prior study. There are no obvious focal wall motion abnormalities noted but poor endocardial definition reduces the sensitivity for the detection of such. The right ventricle is not well visualized. Right ventricular systolic pressure is estimated to be 25 mmHg plus the clinically estimated CVP which cannot be estimated on this exam. The left atrium is mildly dilated. Right atrium not well visualized. There is moderate mitral regurgitation. MR is slightly worse since prior transthoracic echo study. There is no other significant valvular heart disease. The aortic root is normal size. Assessment & Plan Patient is a pleasant 76-year-old female with history of A. fib with RVR chronically anticoagulated on warfarin, COPD, and CHF. She has been been experiencing worsening shortness of breath and respiratory distress over the past week. Patient was admitted to the hospital for shortness of breath, COPD exacerbation, versus CHF exacerbation, and A. fib with RVR. Patient was placed on and he noticed cardiac monitoring and received diltiazem drip and her antiarrhythmic medications are restarted. # A. fib with RVR, present remission, active - Chronically anticoagulated on warfarin, INR is subtherapeutic today. Continue Warfarin per pharmacy.Continue Lovenox until INR therapeutic. - Cardiology consult. Appreciate their input. Plan for cardioversion today. Patient has been NPO after midnight. - Diltiazem drip is maxed at 15 mg per hour with moderate rate control with heart rate in the 100s-130s. Increase oral diltiazem to 120 mg by mouth every 6 hours and will slowly titrate the Diltiazem ggt. - Follow up with cardiology for medication management. - D/C Digoxin yesterday per Card and increased Flecainide dose to 100mg BID. - Continue Carvedilol 25mg BID. - TSH normal - Continuous cardiac monitoring with remote telemetry Cardiology plans a cardioversion today. If this successfully completed all her medications and potentially discharged tomorrow. #. Acute respiratory failure with hypoxia, resolved. - Likely secondary to CHF and COPD exacerbation. - She has been getting Lasix 40mg IV daily for diuresis. Continue with Torsemide 20mg daily. - Continue O2 support. Goal SpO2 is 88-92%. Patient is not on O2 at home at baseline. - Treatment without change. #. Acute on chronic diastolic heart failure, improving. - Patient presented with worsening SOB. No increase in edema per the patient. - Pro BNP 1921 - Repeat Echo showed EF 60-65%. LVEF has not changed since prior study. - Chest x-ray showed diffuse interstitial markings consistent with CHF on admission. Repeat CXR showed decreased pulmonary edema but persistent pleural effusion. - Patient has been receiving diuresis with IV Lasix. Continue Torsemide 20mg daily. - Good urine output. Continue to follow I/O and daily weight. # Acute COPD exacerbation, present on admission. Improved. - Patient not on home oxygen. - PFT on 12/04/2016 showed a significant improvement in her PFTs with bronchodilator of 14%. Impression was No airflow obstruction, significant response to inhaled bronchodilator seen, lung volumes are normal, diffuse capacity to his mildly reduced. - Continue supplemental oxygen as needed and slowly titrate off. Goal SpO2 88% - 92%. - Taper 20 mg prednisone daily to 10mg. Should be able to D/C prednisone at discharge tomorrow. - Continue Xopenex every 2 hours as needed for shortness of breath. # Urinary tract infection with Klebsiella, present on admission, active and stable -Procalcitonin 0.17. -WBC 11.3, PMNs 68.9%, lymphs 19.3% on admission. Currently stable. -No other sign of infections. -Urine Culture shows Klebsiella sensitivity to Ceftriaxone -Patient received 5 days of Ceftriaxone. Will discontinue with Ceftriaxone. # Hyperglycemia present on admission, improved. - A1c 6.1 - Follow clinically Chronic problems #Coronary artery disease, status post stenting 2010 - Followed by wire coiler Dr. Gaines - Presume stable. Patient is asymptomatic. - Continue ASA and statin #Hypertension - Hold home Lisinopril and Imdur in light of low BP. - Continue Torsemide. 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 Anticipate discharge tomorrow. CODE STATUS: Code status: DNR with short term ventilatory support. PCP: Antonio Landis Cardiology: Dr. Gaines DVT PE prophylaxis: SCD's/Enoxiparin/SubQ heparin Q8H Pain Evaluation: Adequate Pain Control GI Prophylaxis: Not indicated VTE Prophylaxis: Sub-Q Enoxaparin Resuscitation Status: Limited Interventions (patient is DO NOT RESUSCITATE with short-term intubation and ventilator support) Attending Statement The patient was seen and examined with staff. Agree with all attached documentation. Breanna Burleson DO Feb 13, 2017 10:20 Chance Torre MD Feb 13, 2017 17:36
[2017-02-13] MEDS: Sodium Chloride LOK Flush 10 mL Syringe IVFLUSH SCH ×3 (11:40→23:18)
--- NOTE | 2017-02-13 11:40 | OP ---
[address] [address] OPERATIVE REPORT PATIENT: RENY TAN : 1940 MR#: [id number] ADMIT: 02/08/2017 JOB ID: [id number] DATE OF SURGERY: 02/13/2017 PREOPERATIVE DIAGNOSIS(ES): Atrial fibrillation. POSTOPERATIVE DIAGNOSIS(ES): Atrial fibrillation, successfully converted to sinus rhythm. PROCEDURE: Synchronous cardioversion. SURGEON: Miesha Marcos MD. COMPLICATIONS: None. DESCRIPTION OF PROCEDURE: Intravenous sedation was given with 0.5 mg of Versed and 30 mg of Brevital. It was delivered with biphasic 120 joules. However, the patient remained in atrial fibrillation. It appears that the sedation was too light. Additional 0.5 mg of Versed and Brevital 5 mg were given. The cardioversion was then performed with 150 joules. The atrial fibrillation was successfully converted to normal sinus rhythm. [facility]
[2017-02-13] MEDS: LORazepam 0.5 mg Tablet PO SCH (11:43)
[2017-02-13] MEDS: HYDROcodone-APAP 10-325 mg PO PRN ×2 (11:49→23:23)
[2017-02-13] MEDS: cefTRIAXone Inj 1,000 MG in Dextrose 5% Minibag Plus 50 ML IV SCH (11:50)
[2017-02-13] MEDS ORDERED: Warfarin 2.5 MG, Warfarin 2 MG PO SCH ×2 (17:00)
--- NOTE | 2017-02-13 18:44 | NUR ---
Cardioversion Cardiac: Pt denies CP, Pt was Afib 90-110 at beginning of shift, had successful cardioversion in AM. Tele: SR 50-60s. Cardizem drip stopped post procedure. Pt changed to tele box to increase independence and encourage mobility. Resp: Denies SOB, O2 titrated off this AM. SPO2 low 90s on RA. GI/: Denies N&V. Neuro: Pt A&Ox3, able to SHAH. Pt anxious at times.
[2017-02-14 02:43] VITALS: BP 120/72; PULSE 59; RESP 20; O2SAT 94
[2017-02-14 03:21] LABS: INR 1.67 ratio
[2017-02-14 04:17] VITALS: PULSE 59
[2017-02-14] MEDS ORDERED: Ondansetron 2 mg/mL 2 mL Inj IVPUSH PRN (04:25)
[2017-02-14] MEDS ORDERED: HYDROcodone-APAP 5-325 mg Tablet PO PRN (04:25)
[2017-02-14 04:43] VITALS: BP 145/81; PULSE 59
[2017-02-14 05:26] VITALS: BP 137/74; PULSE 60
--- NOTE | 2017-02-14 05:27 | NUR ---
Cardiac Rhythm: Pt remained in a NSR throughout the night. HR noted in the high 50s to low 70s. No complaints per pt. Will cont. to monitor.
[2017-02-14 08:01] VITALS: BP 132/67; PULSE 60; RESP 18; O2SAT 93
[2017-02-14] MEDS ORDERED: predniSONE 10 mg Tablet PO ONE (09:05)
--- NOTE | 2017-02-14 09:10 | PROG NOTE ---
[address] [address] PROGRESS NOTE PATIENT: RENY TAN : 1940 MR#: [id number] ADMIT: 02/08/2017 JOB ID: [id number] DATE: 02/14/2017 SUBJECTIVE: The patient underwent successful cardioversion yesterday. She remained in sinus rhythm. The patient reports feeling better. She would like to go home. She denies orthopnea or PND. PHYSICAL EXAMINATION: Temperature is 36.4. Blood pressure is 132/67. Pulse 60. Body weight is 100 kg. Head and face have normal configuration. Neck: JVP was difficult to evaluate due to nuchal obesity. Lungs are clear to auscultation. Chest has normal expansion. Heart: Distant heart sounds. No murmur. Abdomen: Obese, nontender. Extremities: No clubbing, cyanosis, or edema. Skin is warm and dry. BLOOD TESTS: Show sodium 140, potassium 4.6, chloride 101, bicarb 22, BUN 41, creatinine 0.91, glucose 117. IMPRESSION: 1. Paroxysmal atrial fibrillation, status post cardioversion. Currently in sinus rhythm. 2. Congestive heart failure due to diastolic dysfunction, resolved. 3. Coronary artery disease, status post bare metal stent to the left anterior descending artery on February 05, 2011. 4. Hypertension. 5. Hyperlipidemia. 6. Severe obesity. 7. Obstructive sleep apnea, on BiPAP. 8. Behcet syndrome. 9. Moderate persistent asthma. PLAN: The patient could be discharged from the hospital. She will follow with me in three months. I will refer her to see Dr. Apodaca for consideration of atrial fibrillation ablation. I would like to continue her rate control medication with carvedilol 25 mg twice daily and diltiazem extended release 120 mg twice daily. I will increase her antiarrhythmic agent with flecainide to 100 mg twice daily. She will continue on her warfarin. [facility]
[2017-02-14] MEDS: Sodium Chloride LOK Flush 10 mL Syringe IVFLUSH SCH (10:22)
[2017-02-14] MEDS: LORazepam 0.5 mg Tablet PO SCH (10:23)
[2017-02-14 10:29] VITALS: PULSE 58
[2017-02-14] MEDS ORDERED: TORS20TA3 PO (11:07)
[2017-02-14] MEDS ORDERED: LOV100 SUBQ (11:07)
[2017-02-14] MEDS ORDERED: FLC50T PO (11:07)
[2017-02-14] MEDS ORDERED: DILT120C86 PO (11:07)
--- NOTE | 2017-02-14 11:20 | PCM.DIMED ---
Discharge Instructions Date of Service Feb 14, 2017 Dates of Hospitalization Feb 08, 2017 at 00:43 Discharge Diagnosis Discharge Diagnosis # A. fib with RVR, present remission, resolved. #. Acute respiratory failure with hypoxia, resolved. #. Acute on chronic diastolic heart failure, improving. # Acute COPD exacerbation, present on admission. Improved. # Urinary tract infection with Klebsiella, present on admission, active and stable # Hyperglycemia present on admission, improved. #Coronary artery disease, status post stenting 2010. #Hypertension, chronic, stable. #Behcet's syndrome, chronic, stable. Medication Instructions Additional med instructions - You need to inject the Lovenox twice daily until your INR is therapeutic on Warfarin. Resume your current dose of Warfarin and follow up with the [facility] sometime this week or Monday 02/19. - We increased the Flecainide to 100mg twice daily. Please stop the Flecainide 50mg at home. - We added a new medication to help control your heart rate called Diltiazem 120mg twice daily. - Take Torsemide 20mg once daily in the morning. This is the water pill to help with fluid in your lung. - No further antibiotics or steroid is needed at this point. - Resume other medications. Diet Discharge Diet: Heart Healthy Activity Discharge Activity: Limited until seen by PCP Call your provider Call your provider for: Shortness of breath, Chest pain, Weakness (unilateral) Patient Instructions Patient Instructions - You were in the hospital for congestive heart failure and COPD exacerbation. Your symptoms improved on discharge and no need for home oxygen at this time. - These issues also trigger Atrial fibrillation with increased heart rate. You underwent a cardioversion and successfully converted back to normal sinus rhythm with controlled heart rate. - Please take the medications as directed above. - Follow up with your regular doctor in 1-2 weeks. You will need to have blood draw (CBC, BMP, and Magnesium) in a week. You also need to follow up with [facility] on Sunday02/19/17. - You will also follow up with Dr. Gaines (Project Production Engineer) in [address] Gaines recommended that you see Dr. Apodaca for consideration of atrial fibrillation ablation. - You can also make an appointment with Dr. Mac to discuss about the nebulizer treatment if the one you have at home is not working well for you. - Go to the hospital if you develop increasing shortness of breath, chest pain, palpitation, dizziness, headache, or change in mental status. Follow-up Provider: Antonio Yono MD Follow-up with PCP in: 1 week Provider: Lucy Mracos MD Follow-up in: Other (3 months) Breanna Burleson DO Feb 14, 2017 11:15
--- NOTE | 2017-02-14 13:03 | NUR ---
discharge Pt discharged home today at 13:05. Pt off floor via wheelchair with all of her belongings in the company of the HOSPITAL ADMINISTRATIVE ASSISTANT and her . Pt was provided with prescriptions, information regarding follow up appointments, and education materials on meds and how to give a sub q injeciton. Education was done on sub Q injections and pt was able to successfully administer a dose to herself. All questions answered and pt voices understanding.
--- NOTE | 2017-02-14 15:31 | NUR ---
CHF FU call Called pt one day to early, pt will weigh every day and watch her sodium. Pt feeling well and glad to be home.
--- NOTE | 2017-02-14 16:08 | NUR ---
spiritual care: (late entry) follow up conversational visit in late am. Pt shared her discharge plans and reflected on her professional life, hopes and current medically-needed adjustments to her lifestyle.
--- NOTE | 2017-02-14 19:48 | PCM.DC.MED ---
Discharge Summary Date of Service Feb 14, 2017 Dates of Hospitalization Date of Hospital Admission Feb 08, 2017 at 00:43 Date of Discharge: Feb 14, 2017 Providers: Admitting Physician: Chance Torre MD Primary Care Physician: Antonio Yoon MD Attending Physician: Chance Torre MD Diagnosis at Time of Discharge Diagnosis at Time of Discharge # A. fib with RVR, present remission, resolved. #. Acute respiratory failure with hypoxia, resolved. #. Acute on chronic diastolic heart failure, improving. # Acute COPD exacerbation, present on admission. Improved. # Urinary tract infection with Klebsiella, present on admission, active and stable # Hyperglycemia present on admission, improved. #Coronary artery disease, status post stenting 2010. #Hypertension, chronic, stable. #Behcet's syndrome, chronic, stable. Consultations Cardiology Procedures XRay, CTs & MRIs PROCEDURE: X-RAY CHEST ONE VIEW, PORTABLE 1. Cardiomegaly with mild pulmonary edema and small pleural effusions compatible with congestive heart failure. Dictated by: Pedro Storey M.D. on 02/08/2017 at 8:42 Cardiac Echo Impression Echo 02/08/17 Interpretation Summary The patient was in atrial fibrillation with rapid ventricular response during the exam with a heart rate exceeding 100 bpm. The left ventricle is grossly normal size. The left ventricular ejection fraction is normal. The ejection fraction is estimated to be 60-65%. LVEF has not changed since prior study. There are no obvious focal wall motion abnormalities noted but poor endocardial definition reduces the sensitivity for the detection of such. The right ventricle is not well visualized. Right ventricular systolic pressure is estimated to be 25 mmHg plus the clinically estimated CVP which cannot be estimated on this exam. The left atrium is mildly dilated. Right atrium not well visualized. There is moderate mitral regurgitation. MR is slightly worse since prior transthoracic echo study. There is no other significant valvular heart disease. The aortic root is normal size. Invasive Procedures Successful cardioversion on 02/13/17 Brief History Stephanie Cowart is a pleasant 76 y/o female with history of A. fib with RVR and chronically anticoagulated on Warfarin, hx of CHF, CAD (s/p stent placement), hypertension, and COPD , that presented to the ED complaining of 4-5 weeks of mild shortness of breath and dyspnea. She states however over the past week her symptoms significantly worsened to the point where she "could not breathe", and her shortness of breath has continued to worsen since 1 week ago. She sees symptoms include sweats. Per EMS the patient was experiencing shallow respirations and wheezing when they arrived. She was given Albuterol and 20mg Cardizem, which improve her symptoms, as well as reduced her heart rate from 180 to 110. Of note patient sleeps in a chair at night propped up for many years. She attributes this to her history of autoimmune disease "Behcet's". Agent complains of a history of chronic nausea, She states that her symptoms were especially unbearable over the last two nights, and did not improve with her home nebulizer. The pt denies fever, chest pain, chills, vomiting, abdominal pain, cough. Of note patient had an GA in February 2011 and did not experience chest pain at that time either. She has not taken any of her medications today, including the Carvedilol. Of note patient seen by electromatic typist in December of this year and had PFTs done that showed PFTs that significantly improved with bronchodilator. 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 She attributes some of her lung dysfunction now to her premature status as . Patient had complete echo in 2014 that showed LVEF of 60-65% with normal left friend to call size thickness and function. In the ED: Patient was given IV Lasix 20 mg 1 EKG was A. fib with rate of 113 She was given metoprolol tartrate 5 mg IV push once without effect in lowering patient's heart rate. Patient was treated with Xopenex 1.25 mg nebulized once, her respiratory status. Vital signs showed: Temperature 36.8, pulse 180-->133, respiratory rate 20, blood pressure 134/95 with a map of 108, 97% oxygen on 3 L NC Hemogram showed: WBC 11.3, PMNs 68.9%, lymphs 19.3%, H/H20.9/41.3, platelets 443. Chemistry panel showed: Normal with the exception of glucose 168, proBNP 1921 PT/INR 18.5/1.71 UA is pending CXR showed diffuse interstitial markings, consistent with CHF. Patient was admitted to the hospital for shortness of breath, COPD exacerbation , versus CHF exacerbation, and A. fib with RVR. Patient was placed on and he noticed cardiac monitoring and received diltiazem drip and her antiarrhythmic medications are restarted. Hospital Course Patient is a pleasant 76-year-old female with history of A. fib with RVR chronically anticoagulated on warfarin, COPD, and CHF. She has been been experiencing worsening shortness of breath and respiratory distress over the past week. Patient was admitted to the hospital for shortness of breath, COPD exacerbation, versus CHF exacerbation, and A. fib with RVR. Patient was placed on and he noticed cardiac monitoring and received diltiazem drip and her antiarrhythmic medications are restarted. # A. fib with RVR, present remission, active - Chronically anticoagulated on warfarin, INR continues to be subtherapeutic at discharge.Continue Lovenox until INR therapeutic. Follow up with [facility]. - Cardiology consult. Appreciate their input. Plan for cardioversion today. Patient has been NPO after midnight. - Diltiazem drip is maxed at 15 mg per hour with moderate rate control with heart rate in the 100s-130s. At discharge, change to Diltiazem ER 120mg BID per cardiology recommendation. - Follow up with cardiology as outpatient in 3 months. Patient will also see Dr. Apodaca for possible ablation. - D/C Digoxin per Card and increased Flecainide dose to 100mg BID. Continue at discharge. - Continue Carvedilol 25mg BID. Continue at discharge. - TSH normal - Continuous cardiac monitoring with remote telemetry #. Acute respiratory failure with hypoxia, resolved. - Likely secondary to CHF and COPD exacerbation. - She has been getting Lasix 40mg IV daily for diuresis. Continue with Torsemide 20mg daily. - Continue O2 support. Goal SpO2 is 88-92%. Patient is not on O2 at home at baseline. #. Acute on chronic diastolic heart failure, improving. - Patient presented with worsening SOB. No increase in edema per the patient. - Pro BNP 1921 - Repeat Echo showed EF 60-65%. LVEF has not changed since prior study. - Chest x-ray showed diffuse interstitial markings consistent with CHF on admission. Repeat CXR showed decreased pulmonary edema but persistent pleural effusion. - Patient has been receiving diuresis with IV Lasix. Continue Torsemide 20mg daily. - Good urine output. Continue to follow I/O and daily weight. # Acute COPD exacerbation, present on admission. Improved. - Patient not on home oxygen. - PFT on 12/04/2016 showed a significant improvement in her PFTs with bronchodilator of 14%. Impression was No airflow obstruction, significant response to inhaled bronchodilator seen, lung volumes are normal, diffuse capacity to his mildly reduced. - Continue supplemental oxygen as needed and slowly titrate off. Goal SpO2 88% - 92%. - Patient received a course of Prednisone 20mg x 3 days and Prednisone 10mg x2 days. No prednisone at discharge. - Continue Xopenex every 2 hours as needed for shortness of breath. # Urinary tract infection with Klebsiella, present on admission, active and stable -Procalcitonin 0.17 on admission. -WBC 11.3, PMNs 68.9%, lymphs 19.3% on admission. Currently stable. -No other sign of infections. -Urine Culture shows Klebsiella sensitivity to Ceftriaxone -Patient received 5 days of Ceftriaxone. # Hyperglycemia present on admission, improved. - A1c 6.1 - Follow clinically Chronic problems #Coronary artery disease, status post stenting 2010 - Followed by radiation control technician Dr. Gaines - Presume stable. Patient is asymptomatic. - Continue ASA and statin #Hypertension - Resume home Lisinopril and Imdur at discharge. - Continue Torsemide. 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 Anticipate discharge tomorrow. CODE STATUS: Code status: DNR with short term ventilatory support. PCP: Antonio Landsi Cardiology: Dr. Gaines DVT PE prophylaxis: SCD's/Enoxiparin/SubQ heparin Q8H Exam Vital Signs (Last) Date Time Temp Pulse Resp B/P Pulse Ox O2 Delivery O2 Flow Rate FiO2 02/14/17 10:29 58 02/14/17 08:01 36.4 18 132/67 93 Room Air 02/13/17 07:58 2.00 02/08/17 10:00 40 Exam General: Alert in no apparent distress. Appears comfortable. No conversation dyspnea. HEENT: NCAT, EOMI. Anicteric sclera. Mucosal membrane dry. Neck: supple, no JVD noted. Lungs: bibasilar rales. No wheezes. No increased work of breathing. No accessory muscle use. Heart: irregular irregular without murmur gallop or rub, tachycardic. Abdomen: obese, soft, nondistended, nontender, active bowel sound. Extremities: trace edema in bilateral lower extremities. No clubbing or cyanosis. Skin: warm and dry. free of rash or lesions. Psych: appropriate mood and affect. Test 02/07/17 21:07 02/08/17 00:01 02/08/17 01:20 02/08/17 03:00 Hemoglobin A1c 6.1% (4.8-5.6) Total Bilirubin 0.3mg/dL (0.0-1.2) Aspartate Amino Transf (AST/SGOT) 16U/L (0-50) Alanine Aminotransferase (ALT/SGPT) 13U/L (0-32) Alkaline Phosphatase 92U/L (25-165) Total Protein 7.7g/dL (6.4-8.4) Albumin 4.2g/dL (3.4-5.0) Urine Color Straw (YELLOW) Urine Appearance Hazy (CLEAR,HAZY) Urine pH 5.5 (5.0-8.0) Urine Specific [place] 1.008 (1.003-1.035) Urine Protein Negativemg/dL (NEG,TRACE) Urine Glucose (UA) Negativemg/dL (NEGATIVE) Urine Ketones Negativemg/dL (NEGATIVE) Urine Occult Blood Negative (NEGATIVE) Urine Nitrite Negative (NEGATIVE) Urine Bilirubin Negative (NEGATIVE) Urine Urobilinogen Normalmg/dL (NORMAL) Urine Leukocyte Esterase Trace (NEGATIVE) Urine RBC 0-2/hpf (0-2) Urine WBC 6-10/hpf (0-5) Urine Epithelial Cells Few/hpf (NONE-MOD) Urine Crystals None seen (NONE SEEN) Urine Bacteria Many/hpf (NONE-FEW) Urine Hyaline Casts None/lpf (NONE) Urine Granular Casts None seen (NONE SEEN) Urine Waxy Casts None seen (NONE SEEN) Urine Red Blood Cell Casts None seen (NONE SEEN) Urine White Blood Cell Casts None seen (NONE SEEN) Urine Mucus None seen (None Seen) Urine Trichomonas None seen (NONE SEEN) Urine Yeast None (NONE SEEN) Urinalysis Comment None Urine Culture Reflexed Indicated Hold Urine Received (Received) Uric Acid 6.8mg/dL (2.6-7.2) Vitamin B12 Level 853pg/mL (211-946) Folate > 19.9ng/mL (>3.0) Thyroid Stimulating Hormone (TSH) 2.540uIU/mL (0.450-4.500) Troponin T 0.010ug/L (0.0-0.011) Test 02/09/17 02:40 02/10/17 02:53 02/11/17 03:30 02/12/17 03:40 Procalcitonin 0.17ng/mL (0.00-0.08) Neutrophils (%) (Auto) 77.7% (40-74) Lymphocytes (%) (Auto) 11.6% (14-46) Monocytes (%) (Auto) 10.2% (4-12) Eosinophils (%) (Auto) 0.2% (0-5) Basophils (%) (Auto) 0.1% (0-3) Pro-B-Type Natriuretic Peptide 1227pg/mL (0-738) White Blood Count 9.7th/mm3 (3.8-10.1) Red Blood Count 3.99mil/mm3 (3.90-5.20) Hemoglobin 11.4g/dL (12.0-15.6) Hematocrit 35.7% (35.0-46.0) Mean Corpuscular Volume 89.5fL (81-100) Mean Corpuscular Hemoglobin 28.6pg (27.0-35.0) Mean Corpuscular Hemoglobin Concent 31.9% (32.0-37.0) Red Cell Distribution Width 13.7% (12.3-15.4) Platelet Count 316bil/L (150-400) Test 02/13/17 03:05 02/14/17 02:45 Magnesium Level 2.2mg/dL (1.6-2.6) Prothrombin Time 18.1sec (8.1-12.5) Prothromb Time International Ratio 1.67ratio Sodium Level 140mEq/L (134-144) Potassium Level 4.6mEq/L (3.5-5.2) Chloride Level 101mEq/L (97-108) Carbon Dioxide Level 22mmol/L (18-29) Blood Urea Nitrogen 41mg/dL (8-27) Creatinine 0.91mg/dL (0.57-1.00) Estimat Glomerular Filtration Rate 86mL/min (>59) Glucose Level 117mg/dL (60-99) Calcium Level 9.5mg/dL (8.5-10.1) Discharge Medications Discharge Medications Amitriptyline (Amitriptyline) 50 Mg Tab 50 MG PO HS (Reported) Aspirin (Aspirin) 81 Mg Tablet 81 MG PO HS (Reported) Atorvastatin (Lipitor) 40 Mg Tablet 40 MG PO HS (Reported) Carvedilol (Carvedilol) 25 Mg Tablet 25 MG PO BID Prescribed by: YESICA LEONG MD Cholecalciferol (Vitamin D3) (Vitamin D3) 2,000 Unit Capsule 2,000 UNIT PO DAILY (Reported) Diltiazem ER (Diltiazem ER) 120 Mg Capsule.er 120 MG PO BID Prescribed by: LEEANN NORTON DO Enoxaparin (Lovenox) 100 Mg/Ml Syringe 100 MG SUBQ Q12H Prescribed by: LEEANN NORTON DO Flecainide Acetate (Flecainide Acetate) 50 Mg Tablet 100 MG PO BID Prescribed by: LEEANN NORTON DO Gemfibrozil (Gemfibrozil) 600 Mg Tablet 600 MG PO BID (Reported) Isosorbide MN ER (Isosorbide MN ER) 30 Mg Tab.er.24h 30 MG PO DAILY (Reported) Lisinopril (Lisinopril) 20 Mg Tablet 20 MG PO BID Prescribed by: YESICA LEONG MD Lorazepam (Lorazepam) 0.5 Mg Tablet 0.5 MG PO DAILY (Reported) Montelukast (Montelukast) 10 Mg Tablet 10 MG PO HS (Reported) Multivitamin (Multi Vitamin Daily) 1 Each Tablet 1 TAB PO DAILY (Reported) Omeprazole (Omeprazole) 20 Mg Tablet.dr 20 MG PO BID (Reported) Polyethylene Glycol 3350 (Miralax) 17 Gm Powd.pack 17 GM PO DAILY (Reported) Sertraline HCl (Sertraline) 100 Mg Tablet 100 MG PO QAM (Reported) Torsemide (Torsemide) 20 Mg Tablet 20 MG PO DAILY Prescribed by: LEEANN NORTON DO Ubidecarenone (Coenzyme Q10) 30 Mg/5 Ml Liquid 60 MG PO DAILY (Reported) Warfarin Sodium (Warfarin Sodium) 3 Mg Tablet 3 MG PO MONDAYS (Reported) Warfarin Sodium (Warfarin Sodium) 3 Mg Tablet 4.5 MG PO ALL OTHER DAYS (Reported ) As needed Hydrocodone-Acetaminophen 10-325 mg (Hydrocodone-Acetaminophen 10-325 mg) 1 Each Tablet 1-2 TABLET PO Q4H PRN PRN For Pain (Reported) Nitroglycerin SL (Nitrostat) 0.4 Mg Tab.subl 0.4 MG SL Q5MIN PRN PRN For Chest Pain (Reported) Ranitidine (Zantac) 300 Mg Tablet 300 MG PO BID PRN PRN For Dyspepsia or Heartburn (Reported) Triamcinolone Acetonide (Nasacort) 10.8 Ml [place] 1-2 SPRAY NOSTRIL BID PRN PRN PRN CONGESTION (Reported) Triamterene/HCTZ 37.5-25 mg (Triamterene/HCTZ 37.5-25 mg) 1 Each Capsule 1 CAPSULE PO DAILY PRN PRN oliguria (Reported) Additional med instructions - You need to inject the Lovenox twice daily until your INR is therapeutic on Warfarin. Resume your current dose of Warfarin and follow up with the [facility] sometime this week or Monday 02/19. - We increased the Flecainide to 100mg twice daily. Please stop the Flecainide 50mg at home. - We added a new medication to help control your heart rate called Diltiazem 120mg twice daily. - Take Torsemide 20mg once daily in the morning. This is the water pill to help with fluid in your lung. - No further antibiotics or steroid is needed at this point. - Resume other medications. Followup Plan Disposition: Home Discharge Diet: Heart Healthy Discharge Activity: Limited until seen by PCP Patient Instructions - You were in the hospital for congestive heart failure and COPD exacerbation. Your symptoms improved on discharge and no need for home oxygen at this time. - These issues also trigger Atrial fibrillation with increased heart rate. You underwent a cardioversion and successfully converted back to normal sinus rhythm with controlled heart rate. - Please take the medications as directed above. - Follow up with your regular doctor in 1-2 weeks. You will need to have blood draw (CBC, BMP, and Magnesium) in a week. You also need to follow up with [facility] on Sunday02/19/17. - You will also follow up with Dr. Gaines ([facility]) in [address] Gaines recommended that you see Dr. Apodaca for consideration of atrial fibrillation ablation. - You can also make an appointment with Dr. Mac to discuss about the nebulizer treatment if the one you have at home is not working well for you. - Go to the hospital if you develop increasing shortness of breath, chest pain, palpitation, dizziness, headache, or change in mental status. Follow-up Provider: Antonio Yoon MD Follow-up with PCP in: 1 week Provider: Lucy Marcos MD Follow-up in: Other (3 months) copies to: Antonio Yoon MD, Ngochanh H DO Feb 14, 2017 11:22
== END 2017-02-14 13:09 | disposition home or self-care (01) | DRG 291 ==
LOC: EDUNIT# 20:53 → EDBD 20:53 → SED 20:53 → PCC 02-08 00:43
PROVIDERS: ADMIT Hospitalist; ATTEND Internal Medicine
PROC: 5A2204Z Restoration of Cardiac Rhythm, Single (ICD-10-PCS; principal; 2017-02-13)
DX: I50.33 Acute on chronic diastolic (congestive) heart failure (principal); J96.21 Acute and chronic respiratory failure with hypoxia; J44.1 Chronic obstructive pulmonary disease with (acute) exacerbation; N39.0 Urinary tract infection, site not specified; M35.2 Behcet's disease; I48.0 Paroxysmal atrial fibrillation; Z79.01 Long term (current) use of anticoagulants; B96.1 Klebsiella pneumoniae [K. pneumoniae] as the cause of diseases classified elsewhere; E66.9 Obesity, unspecified; Z68.33 Body mass index [BMI] 33.0-33.9, adult; Z95.5 Presence of coronary angioplasty implant and graft; I25.10 Atherosclerotic heart disease of native coronary artery without angina pectoris; Z87.891 Personal history of nicotine dependence; R73.9 Hyperglycemia, unspecified; I10 Essential (primary) hypertension; G47.33 Obstructive sleep apnea (adult) (pediatric); J45.40 Moderate persistent asthma, uncomplicated; E78.5 Hyperlipidemia, unspecified